=== PATIENT | female | born 1960 | race Caucasian/White ===

== ENCOUNTER 2020-02-17 12:40 | Inpatient (IN) | payer BC ==
[2020-02-17] MEDS ORDERED: SODIUM CHLORIDE 1,000 ML IV STA (12:55)
[2020-02-17 13:28] LABS: BASO % 0.4 % (0-2.0); EOS % 0.4 % (0-4.5); HEMATOCRIT 44.9 % (32.4-45.2); MCH 29.8 pg (25.7-33.7); MCHC 33.5 g/dl (32.0-36.0); MEAN PLT VOLUME 9.1 fl (7.5-11.1); MONO % 9.7 % (3.8-10.2); NEUT % 69.5 % (42.8-82.8); PLATELET COUNT 318 K/MM3 (134-434); RBC 5.04 M/mm3 (3.60-5.2); RDW 13.8 % (11.6-15.6); WHITE BLOOD COUNT 13.8 K/mm3 (4.0-10.0)
[2020-02-17 13:33] LABS: INR 1.04 (0.83-1.09); PROTHROMBIN TIME (PATIENT) 12.3 SEC (9.7-13.0)
[2020-02-17 13:37] LABS: ACTIVATED PTT 31.1 SECONDS (25.2-36.5)
--- NOTE | 2020-02-17 13:48 | PDOC ---
History of Present Illness - General Chief Complaint: Shortness of Breath Stated Complaint: CHEST PAIN Time Seen by Provider: 02/17/20 12:52 History Source: Patient Exam Limitations: No Limitations - History of Present Illness Initial Comments: Ernestina Ma is a 59 Y F with a PMH of HTN, seasonal allergies, and b12 deficiency, presents with 3 weeks of worsening SOB. She reports that for 3 weeks she has had difficulty breathing/SOB at rest, but this weekend it became worse. She also has sob, when she wakes up. SOB was sudden onset, no associated chest pain, cough, fever, chills, worsen with talking, not relieved with inhaler(flovent). She reports that recently she had SOB and a cough and neck/jaww pain with exertion. Today, she went to see her PCP, Dr. Hodges, for SOB, EKG done at office was abnormal and her HR was elevated, she was advised to come to ER. In ER she is resting comfortably, she reports no active SOB, chest pain, chest tightness, abdominal/back pain, cough, fever, chills, nausea, vomiting. She smoked for many years on and off, stopped 10 years ago, about 1/2ppd. Social alcohol and no illicit drugs. LMP 2015, no post abnormal bleeding. 02/17/20 13:49 02/17/20 14:06 02/17/20 14:11 02/17/20 14:33 Is this a multiple visit Asthma Patient?: No Past History - Medical History Allergies/Adverse Reactions: Allergies Allergy/AdvReac Type Severity Reaction Status Date / Time No Known Drug Allergies Allergy Verified 02/17/20 12:49 Home Medications: Ambulatory Orders Chlorthalidone [Hygroton -] 25 mg PO DAILY 02/17/20 Levocetirizine Dihydrochloride [Xyzal] 5 mg PO DAILY 02/17/20 COPD: No Disorders: Yes (H/O KIDNEY STONES) - Surgical History Abdominal Surgery: Yes (UMBILICAL HERNIA/INCISIONAL HERNIA REPAIR) Cholecystectomy: Yes - Reproductive History Is Patient Now?: No - Psycho-Social/Smoking History Smoking History: Former smoker Have you smoked in the past 12 months: No Information on smoking cessation initiated: No - Substance Abuse Hx (Audit-C & DAST Scrn) How often the patient has a drink containing alcohol: Never Score: In Men: 4 or > Positive; In Women: 3 or > Positive: 0 Screen Result (Pos requires Nsg. Audit-10AR): Negative In the last yr the pt used illegal drug/Rx for NonMed reason: No Score: Yes response is considered Positive: 0 Screen Result (Positive result requires Nsg. DAST-10): Negative Review of Systems - Review of Systems Able to Perform ROS?: Yes Is the patient limited Setswana proficient: No Constitutional: No: Chills, Fever, Weakness HEENTM: No: Blurred Vision, Nose Congestion, Throat Pain, Throat Swelling Respiratory: Yes: Shortness of Breath, SOB with Exertion, SOB at Rest. No: Co ugh, Orthopnea, Wheezing, Productive cough Cardiac (ROS): No: Chest Pain, Edema, Irregular Heart Rate, Lightheadedness, Palpitations, Chest Tightness ABD/GI: No: Constipated, Diarrhea, Difficulty Swallowing, Nausea, Vomiting, Indigestion : No: Burning, Dysuria, Frequency, Pain, Urgency Musculoskeletal: No: Back Pain, Muscle Weakness Integumentary: No: Change in Color Neurological: No: Headache, Numbness, Paresthesia, Weakness *Physical Exam - Vital Signs Last Vital Signs Temp Pulse Resp BP Pulse Ox 97.9 F 118 H 20 126/90 95 02/17/20 12:50 02/17/20 13:27 02/17/20 13:27 02/17/20 13:27 02/17/20 13:27 - Physical Exam General Appearance: Yes: Obese. No: Apparent Distress HEENT: positive: EOMI, BAO. negative: Nasal Congestion, Rhinorrhea Neck: positive: Supple. negative: Tender, Rigid, Carotid bruit, Lymphadenopathy (R), Lymphadenopathy (L) Respiratory/Chest: positive: Lungs Clear, Normal Breath Sounds. negative: Chest Tender, Respiratory Distress, Rales, Rhonchi, Wheezing Cardiovascular: positive: Regular Rhythm, S1, S2, Tachycardia. negative: Edema, JVD, Murmur Vascular Pulses: Carotid (R): 2+, Carotid (L): 2+, Dorsalis-Pedis (R): 2+, Doralis-Pedis (L): 2+ Gastrointestinal/Abdominal: positive: Normal Bowel Sounds, Soft. negative: Tender, Tenderness, Hernia, Mass Musculoskeletal: positive: Normal Inspection. negative: CVA Tenderness Extremity: positive: Normal Inspection. negative: Pedal Edema, Swelling, Calf Tenderness Integumentary: positive: Normal Color, Warm, Moist Neurologic: positive: lockstitch lining setter II-XII NML intact, Fully Oriented, Motor Strength 11/01 ED Treatment Course - LABORATORY CBC & Chemistry Diagram: 02/20/20 05:20 02/19/20 05:30 - ADDITIONAL ORDERS Additional order review: Laboratory Results 02/17/20 02/17/20 13:00 13:00 PT with INR 12.30 INR 1.04 PTT (Actin FS) 31.1 D-Dimer 7970 H 02/17/20 13:00 RBC 5.04 MCV 89.0 MCHC 33.5 RDW 13.8 MPV 9.1 Neutrophils % 69.5 D Lymphocytes % 20.0 D Monocytes % 9.7 Eosinophils % 0.4 D Basophils % 0.4 Medical Decision Making - Medical Decision Making 59 Y F with a PMH of HTN presents with 3 weeks of worsening SOB. #PE vs ACS vs Covid vs anemia vs endocrine - V/S : BP initially 161/90, repeat 20 min later 126/90, P 124, Spo2 97, RR 20 - EKG: - Chest CTA - CXR: - POCUS cardiac: - Pocus Lung: - Cardiac profile - CBC, CMP, Crp, ferritin, LDH, Mg, BNP - TSH, FT4 - NS 1000mls 02/17/20 13:57 Focused cardiac ultrasound - overall preserved contractility. very mild rv dilation close to 1:1 ration, no hypocontractilty no pericardial effusion. difficult views due to body habitus. ivc not visible. impression: overall preserved contractility, focused lung ultrasound no b lines, a line predominant no plueral effusion. bases no b lines. impression: normal lung ultrasound. 02/17/20 14:29 - D dimer: 7970 - BNP 2796 - TSH 0.14 - CRP 3.3, LD 253 Discharge - Discharge Information Problems reviewed: Yes Clinical Impression/Diagnosis: Pulmonary embolism - Follow up/Referral - Patient Discharge Instructions - Post Discharge Activity
[2020-02-17 14:06] LABS: N-TERMINAL BNP 2796.1 pg/ml (5-125)
[2020-02-17 14:08] LABS: ALBUMIN 3.9 g/dl (3.4-5.0); BILIRUBIN,TOTAL 0.8 mg/dL (0.2-1); BLOOD UREA NITROGEN 18.1 mg/dL (7-18); CREATININE 0.9 mg/dL (0.55-1.3); MAGNESIUM 2.2 mg/dL (1.8-2.4); POTASSIUM 3.3 mmol/L (3.5-5.1)
--- NOTE | 2020-02-17 14:26 | PDOC ---
Documentation entered by Maryellen Cornelius SCRIBE, acting as scribe for Arminda Alegre MD. Arminda Alegre MD: This documentation has been prepared by the valarieibeAdryan Lincy, SCRIBE, under my direction and personally reviewed by me in its entirety. I confirm that the documentation accurately reflects all work, treatment, procedures, and medical decision making performed by me. Attending Attestation - Resident Resident Name: [email or web address] - ED Attending Attestation I have performed the following: I have examined & evaluated the patient, The case was reviewed & discussed with the resident, I agree w/resident's findings & plan, Exceptions are as noted - HPI HPI: 02/17/20 14:07 The patient is a 59-year-old female with a past medical history significant for B12, htn, obesity, recent flu shot 3 weeks ago. deficiency who presents to the emergency department with worsening dyspnea on exertion. The patient reports a 1-month history of dyspnea on exertion that worsened in the past 1 week. The patient reports increasing shortness of breath with ambulation. The patient reports associated symptoms of jaw pain with exertion, associated with dyspnea on exertion. Denies orthopnea. Denies leg swelling. Denies a history of DVT or PE. Denies past MIs. Denies recent viral URI or COVID symptoms. The patient was seen at PCPs officer earlier today, who sent the patient to the ER for furthur evaluation. 02/17/20 14:14 - Physicial Exam PE: 02/17/20 14:15 awake alert lung clear bilat heart reg tachycardia. no mrg abd soft nt nd ext wwp. no edema. no calf tenderness. 2 + dp pt pulses. nuero alert oriented x 3. skin warm and dry no rash. - Medical Decision Making 02/17/20 14:21 59 yo F h/o htn obesity here with c/o exertional sob. intermittent jaw pain. tachycardic on presentation to ed, did use flovent prior to arrival. differential anemia, electrolyte abnoramlity thyroid abnoramlity, mi, pe, myocarditis, . plan labs ekg trop cxr tsh, ua focused ED us echo performed. overall preserved contractility. very mild rv dilation close to 1:1 ration, no hypocontractilty , noted tricuspid regurg. no pericardial effusion. difficult views due to body habitus. ivc not visible. impression: overall preserved contractility, Rv dilation close to 1:1, mild tricuspid regurg. focused lung ultrasound no b lines, a line predominant no plueral effusion. bases no b lines. impression: normal lung ultrasound. plan cta lungs r/o PE. d dimer elevated 7000. 02/17/20 15:15 02/17/20 15:15 pt cta with visible right main pulmonary branch with PE. will start on heparin, heparin drip, will consult ICU due to early RV strain rv dilation, large clot burden 02/17/20 15:26 Heart Score/ECG Review #1 General ECG Interpretation: Sinus Rhythm (sinus tachycardia 120 bpm, no st elevation or depression.) Compared to previous ECG there are: Other Discharge - Discharge Information Problems reviewed: Yes Clinical Impression/Diagnosis: Pulmonary embolism - Admission Yes - Follow up/Referral - Patient Discharge Instructions - Post Discharge Activity
[2020-02-17] MEDS ORDERED: HEPARIN NA (PORCINE) 5,000 UNITS/ML 1ML VIAL IVPUSH PRN (15:13)
[2020-02-17] MEDS ORDERED: HEPARIN INFUSION - 25,000 UNITS/500 ML INFUS.BAG IVPB ONE (15:28)
[2020-02-17] MEDS ORDERED: HEPARIN NA (PORCINE) 5,000 UNITS/ML 1ML VIAL ONE (15:28)
[2020-02-17] MEDS: HEPARIN INFUSION - 25,000 UNITS/500 ML INFUS.BAG IVPB SCH (15:36)
--- NOTE | 2020-02-17 17:33 | CONSULT ---
Consultation: REQUESTING PROVIDER: CONSULT REQUEST: We have been asked to medically evaluate this patient for ICU HISTORY OF PRESENT ILLNESS: 59yo F with a PMH of HTN, obesity, B12 deficiency, seasonal allergies, arthritis, who presented to ED with worsening shortness of breath. She reports a 3 week history of dyspnea on exertion that worsened in the past 1 week. She now is short of breath even with regular activities of daily living, including talking. She also reports right foot and calf pain within the past 1 week, exacerbated by bearing weight on heel. 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 She is post-menopausal (2014), has had one miscarriage and does not take hormone replacement therapy. She denies recent travel, past MIs or any history of DVT or PE. Denies recent viral URI or COVID symptoms. Of note, last week her doctor found an 8 mm breast mass on mammogram and ultrasound that is being further evaluated. The patient was seen at PCPs officer earlier today, who sent the patient to the ER for furthur evaluation. - CTA with visible right main pulmonary branch with PE, started on heparin drip PSH: cholecystectomy, kidney stones, D& C REVIEW OF SYSTEMS: CONSTITUTIONAL: Absent: fever, chills, diaphoresis, generalized weakness, malaise, loss of appetite, weight change HEENT: Absent: rhinorrhea, nasal congestion, throat pain, throat swelling, difficulty swallowing, mouth swelling, ear pain, eye pain, visual changes CARDIOVASCULAR: Absent: chest pain, syncope, palpitations, irregular heart rate, lightheadedness, peripheral edema RESPIRATORY: Present: cough, dyspnea with exertion, orthopnea, absent: wheezing, stridor, hemoptysis GASTROINTESTINAL: Absent: abdominal pain, abdominal distension, nausea, vomiting, diarrhea, constipation, melena, hematochezia GENITOURINARY: Absent: dysuria, frequency, urgency, hesitancy, hematuria, flank pain, genital pain MUSCULOSKELETAL: Present: arthralgia Absent: myalgia, joint swelling, back pain, neck pain SKIN: Absent: rash, itching, pallor HEMATOLOGIC/IMMUNOLOGIC: Absent: easy bleeding, easy bruising, lymphadenopathy, frequent infections NEUROLOGIC: Absent: headache, focal weakness or paresthesias, dizziness, unsteady gait, seizure, mental status changes, bladder or bowel incontinence PHYSICAL EXAMINATION Vital Signs - 24 hr 02/17/20 02/17/20 02/17/20 12:50 13:00 13:07 Temperature 97.9 F Pulse Rate 129 H 120 H Pulse Rate [ Apical] Respiratory 24 H Rate Blood Pressure 161/101 H Blood Pressure [Right Arm] O2 Sat by Pulse 97 97 97 Oximetry (%) 02/17/20 02/17/20 02/17/20 13:13 13:27 15:50 Temperature Pulse Rate 118 H Pulse Rate [ 118 H Apical] Respiratory 20 Rate Blood Pressure Blood Pressure 126/90 [Right Arm] O2 Sat by Pulse 97 95 96 Oximetry (%) 02/17/20 02/17/20 16:17 17:24 Temperature 98.5 F Pulse Rate 110 H Pulse Rate [ 115 H Apical] Respiratory 24 H 20 Rate Blood Pressure 136/92 Blood Pressure 117/89 [Right Arm] O2 Sat by Pulse 100 95 Oximetry (%) GENERAL: Awake, alert, and fully oriented, in no acute distress. HEAD: Normal with no signs of trauma. EYES: Pupils equal, round and reactive to light, extraocular movements intact EARS, NOSE, THROAT: oropharynx clear without exudates. Moist mucous membranes. LUNGS: Breath sounds equal, clear to auscultation bilaterally. No wheezes, and no crackles. No accessory muscle use. HEART: Regular rate and rhythm, normal S1 and S2 without murmur ABDOMEN: Soft, nontender, not distended, normoactive bowel sounds, no guarding, no rebound MUSCULOSKELETAL:. No CVA tenderness. UPPER EXTREMITIES: 2+ pulses, warm, well-perfused. No cyanosis. No clubbing. Cap refill <2 seconds. No peripheral edema. LOWER EXTREMITIES: 2+ pulses, warm, well-perfused. No calf tenderness. No peripheral edema. NEUROLOGICAL: Cranial nerves II-XII intact. Normal speech. SKIN: Warm, dry, normal turgor, no rashes or lesions noted. Laboratory Last Values WBC 13.8 K/mm3 (4.0-10.0) H 02/17/20 13:00 RBC 5.04 M/mm3 (3.60-5.2) 02/17/20 13:00 Hgb 15.0 GM/dL (10.7-15.3) 02/17/20 13:00 Hct 44.9 % (32.4-45.2) 02/17/20 13:00 MCV 89.0 fl (80-96) 02/17/20 13:00 MCH 29.8 pg (25.7-33.7) 02/17/20 13:00 MCHC 33.5 g/dl (32.0-36.0) 02/17/20 13:00 RDW 13.8 % (11.6-15.6) 02/17/20 13:00 Plt Count 318 K/MM3 (134-434) 02/17/20 13:00 MPV 9.1 fl (7.5-11.1) 02/17/20 13:00 Absolute Neuts (auto) 9.6 K/mm3 (1.5-8.0) H 02/17/20 13:00 Neutrophils % 69.5 % (42.8-82.8) D 02/17/20 13:00 Lymphocytes % 20.0 % (8-40) D 02/17/20 13:00 Monocytes % 9.7 % (3.8-10.2) 02/17/20 13:00 Eosinophils % 0.4 % (0-4.5) D 02/17/20 13:00 Basophils % 0.4 % (0-2.0) 02/17/20 13:00 Nucleated RBC % 0 % (0-0) 02/17/20 13:00 PT with INR 12.30 SEC (9.7-13.0) 02/17/20 13:00 INR 1.04 (0.83-1.09) 02/17/20 13:00 PTT (Actin FS) 31.1 SECONDS (25.2-36.5) 02/17/20 13:00 D-Dimer 7970 ng/ml (0-500) H 02/17/20 13:00 Sodium 143 mmol/L (136-145) 02/17/20 13:00 Potassium 3.3 mmol/L (3.5-5.1) L 02/17/20 13:00 Chloride 106 mmol/L (98-107) 02/17/20 13:00 Carbon Dioxide 27 mmol/L (21-32) 02/17/20 13:00 Anion Gap 10 MMOL/L (8-16) 02/17/20 13:00 BUN 18.1 mg/dL (7-18) H 02/17/20 13:00 Creatinine 0.9 mg/dL (0.55-1.3) 02/17/20 13:00 Est GFR (CKD-EPI)AfAm 81.11 02/17/20 13:00 Est GFR (CKD-EPI)NonAf 69.99 02/17/20 13:00 Random Glucose 78 mg/dL (74-106) 02/17/20 13:00 Calcium 10.0 mg/dL (8.5-10.1) 02/17/20 13:00 Magnesium 2.2 mg/dL (1.8-2.4) 02/17/20 13:00 Ferritin 33.1 ng/ml (8-388) 02/17/20 13:00 Total Bilirubin 0.8 mg/dL (0.2-1) 02/17/20 13:00 AST 25 U/L (15-37) 02/17/20 13:00 ALT 26 U/L (13-61) 02/17/20 13:00 Alkaline Phosphatase 115 U/L (45-117) 02/17/20 13:00 LD Total 253 U/L (84-246) H 02/17/20 13:00 Creatine Kinase 68 U/L (26-192) 02/17/20 13:00 Troponin I 0.81 ng/ml (0.00-0.05) H* 02/17/20 13:00 C-Reactive Protein 3.3 MG/DL (0.00-0.3) H 02/17/20 13:00 B-Natriuretic Peptide 2796.1 pg/ml (5-125) H 02/17/20 13:00 Total Protein 8.0 g/dl (6.4-8.2) 02/17/20 13:00 Albumin 3.9 g/dl (3.4-5.0) 02/17/20 13:00 TSH 0.14 uIU/ml (0.358-3.74) L 02/17/20 13:00 Free T4 1.07 ng/dl (0.76-1.46) 02/17/20 13:00 Active Medications Generic Name Dose Route Start Last Admin Trade Name Freq PRN Reason Stop Dose Admin Chlorhexidine Gluconate 1 applic 02/17/20 22:00 Hibiclens For Decolonization - TP HS MEG Heparin Sodium (Porcine) 1,000 unit 02/17/20 15:13 Heparin - IVPUSH PRN PRN Heparin Heparin Sodium (Porcine) 5,000 unit 02/17/20 15:13 02/17/20 15:36 Heparin - IVPUSH 5,000 unit PRN PRN Administration Heparin Heparin Sodium/Dextrose 25,000 units in 500 mls @ 20 mls/hr 02/17/20 15:15 02/17/20 15:36 Heparin Infusion - IVPB 1,000 units/hr TITR MEG 20 mls/hr Administration Protocol 1,000 UNITS/HR Mupirocin 1 applic 02/17/20 22:00 Bactroban Ointment (For Decolonization) - NS 02/22/20 21:59 BID MEG ASSESSMENT/PLAN: 59 yo F PMH HTN, B12 deficiency presents to the ED for worsening SOB x 3 weeks. Pt admitted to ICU for PE with R heart strain. Neuro: AOx3 , no acute events Cardiac: HTN, tropinemia, R heart strain - EKG reviewed -cont tele monitoring - Trop 0.81, BNP 2,796.1 -pending Echocardiogram, duplex b/l - will hold Chlorthalidone 25 mg in setting of acute PE, will re- eval tomorrow, monitor for any signs of acute hemodynamic instability - will get lipid panel Pulm: PE - CTA reviewed, see above - on 2L NC, titrate as tolerated . maintain SpO2> 92% - DDimer 7970 - cont Hep drip - IR (Dr. Uribe) will reevaluate tomorrow whether she needs thrombolysis ID: - pending Covid - afebrile, minor leukocytosis - monitor off Abx Hem/onc: - Hem/onc, Dr. Chua, consulted for breast mass seen on U/S 8/ Endo: - TSH pending, A1C pending DVT ppx: Heparin drip FEN: Fluids: Not on standing fluids Elec: Monitor electrolytes Nutr: NPO DISPO: cont ICU level care. thank you for this consulting opportunity. ATTENDING PHYSICIAN STATEMENT I saw and evaluated the patient. I reviewed the resident's note and discussed the case with the resident. I agree with the resident's findings and plan as documented. SUBJECTIVE: OBJECTIVE: ASSESSMENT AND PLAN:
[2020-02-17] MEDS: MUPIROCIN 2% TOPICAL OINTMENT FOR DECOLONIZATION NS SCH (21:31)
[2020-02-17] MEDS ORDERED: CHLORHEXIDINE GLUCONATE 4% CLEANSER FOR DECOLONIZATION TP SCH (22:00)
[2020-02-17] MEDS ORDERED: MELATONIN 5 MG TABLETS PO PRN (23:31)
--- NOTE | 2020-02-18 06:17 | PN ---
Progress Note, Physician - Current Medication List Current Medications: Active Medications Chlorhexidine Gluconate (Hibiclens For Decolonization -) 1 applic TP HS MEG Last Admin: 02/17/20 21:31 Dose: 1 applic Documented by: Heparin Sodium (Porcine) (Heparin -) 1,000 unit IVPUSH PRN PRN PRN Reason: Heparin Heparin Sodium (Porcine) (Heparin -) 5,000 unit IVPUSH PRN PRN PRN Reason: Heparin Last Admin: 02/17/20 15:36 Dose: 5,000 unit Documented by: Heparin Sodium/Dextrose (Heparin Infusion -) 25,000 units in 500 mls @ 20 mls/hr IVPB TITR MEG; Protocol Last Admin: 02/17/20 15:36 Dose: 1,000 units/hr, 20 mls/hr Documented by: Melatonin (Melatonin) 5 mg PO HS PRN PRN Reason: INSOMNIA Last Admin: 02/17/20 23:51 Dose: 5 mg Documented by: Mupirocin (Bactroban Ointment (For Decolonization) -) 1 applic NS BID MEG Stop: 02/22/20 21:59 Last Admin: 02/17/20 21:31 Dose: 1 applic Documented by: - Objective Vital Signs: Vital Signs Temperature 98.6 F 02/18/20 02:00 Pulse Rate 85 02/18/20 02:00 Respiratory Rate 18 02/18/20 02:00 Blood Pressure 144/81 02/18/20 02:00 O2 Sat by Pulse Oximetry (%) 96 02/18/20 02:00 Labs: CBC, BMP 02/17/20 13:00 02/17/20 13:00 INR, PTT INR 1.04 (0.83-1.09) 02/17/20 13:00
--- NOTE | 2020-02-18 06:20 | CON.CARD ---
Consult Consult Specialty:: Cardiology Referred by:: Dr. Cantrell Reason for Consultation:: Pulmonary emboli - History of Present Illness Chief Complaint: SOB x 3 weeks History of Present Illness: 59F presents with 3 weeks SOB, exertional fatigue, cough worse over last 3-4 days. In ER CTA showed bilateral pulmonary emboli, extensive. Thus far HD stable. Denies CP, on 2-3L NC O2 sat 97% FH: brother had DVT, circumstances unclear. Precip factors here may be recent sedentary work situation. 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: Alzheimer's, CVA, Dementia, Migraine, Multiple Sclerosis, Peripheral Neuropathy, Parkinson's, Seizure, Syncope, TIA, Vertigo, Other Cardio/Vascular: Yes: HTN Pulmonary: No: Asthma, Bronchitis, Cancer, COPD, O2 Dependent, Pneumonia, Previously Intubated, Pulmonary Embolus, Pulmonary Fibrosis, Sleep Apnea, Other Gastrointestinal: No: Ascites, Cancer, Constipation, Crohn's Disease, Diverticulitis, Diverticulosis, Esophageal Varices, Gastritis, GERD, GI Bleed, Hemorrhoids, Hiatal Hernia, Inflamatory Bowel Disease, Irritable Bowel Disease, Pancreatitis, Peptic Ulcer Disease, Ulcerative Colitis, Other Hepatobiliary: No: Cirrhosis, Cholelithiasis, Cholecystitis, Choledocholithiasis, Hepatitis A, Hepatitis B, Hepatitis C, Other Renal/: No: Renal Failure, Renal Inusuff, BPH, Cancer, Hematuria, Hemodialysis, Neurogenic Bladder, Renal Calculi, UTI, Other Reproductive: No: Ectopic , Endometriosis, Fibroids, PID, Polycystic Ovary Syndrome, Postmenopausal, Other ...LMP: 10/01/12 ...: No Heme/Onc: No: Anemia, B12 Deficiency, Bleeding Disorder, Cancer, Current Chemotherapy, Current Radiation Therapy, Hemochromatosis, Hypercoaguable State, Myeloproliferative Synd, Sickle Cell Disease, Sickle Cell Trait, Thrombocytopenia, Other Infectious Disease: No: AIDS, C-Diff, Herpes Zoster, HIV, MRSA, STD's, Tuberculosis, VREF, Other Psych: No: Addictions, Anxiety, Bipolar, Depression, Panic, Psychosis, Schizophrenia, Other Rheumatology: No: Fibromyalgia, Gout, Lupus, Rheumatoid Arthritis, Sarcoidosis, Vasculitis, Other - Past Surgical History Past Surgical History: No: None, AAA Repair, AICD, Amputation, Appendectomy, Arthrosocopy, AV Fistula/Graft, Bariatric Surgery, Breast Biopsy, Bypass, CABG, Carotid Endarterectomy, Cataract Removal, Cholecystectomy, Colectomy, Colonoscopy, Colostomy, Craniotomy, , Cystectomy, Hernia Repair, Hysterectomy, Ileal Conduit, Ileosotomy, Joint Replacement, Kidney Transplant, Laminectomy, Liver Transplant, Mastectomy, Nephrectomy, Oopherectomy, Orchiectomy, Permanent Pacemaker, Prostatectomy, Splenectomy, Stent, Thoracotomy, TURP, Tonsillectomy, Tubal Ligation, Upper Endoscopy, Valve Replacement, Vasectomy, Vein Stripping/Ligation - Alcohol/Substance Use Hx Alcohol Use: Yes (SOCIALLY) History of Substance Use: reports: Marijuana - Smoking History Smoking history: Former smoker Have you smoked in the past 12 months: No - Social History History of Recent Travel: No Home Medications - Allergies Allergies/Adverse Reactions: Allergies Allergy/AdvReac Type Severity Reaction Status Date / Time No Known Drug Allergies Allergy Verified 02/17/20 12:49 - Home Medications Home Medications: Ambulatory Orders Chlorthalidone [Hygroton -] 25 mg PO DAILY 02/17/20 Levocetirizine Dihydrochloride [Xyzal] 5 mg PO DAILY 02/17/20 Family Medical History Family History: Unremarkable Review of Systems Findings/Remarks: see HPI - Review of Systems Constitutional: reports: Weakness Eyes: reports: No Symptoms HENT: reports: No Symptoms Neck: reports: No Symptoms Cardiovascular: reports: Shortness of Breath Respiratory: reports: Exercise Intolerance Gastrointestinal: denies: No Symptoms, Abdominal Pain, Bloating, Constipation, Diarrhea, Dysphagia, Indigestion, Melena, Nausea, Rectal Bleeding, Vomiting, Vomiting Blood, Other Genitourinary: denies: No Symptoms, Burning, Discharge, Dysuria, Flank Pain, Frequency, Hematuria, Incontinence, Lesions, Menses, Pain, Testicular Mass, Testicular Pain, Testicular Swelling, Urgency, Vaginal Bleeding, Other Breasts: denies: No Symptoms Reported, See HPI, Breast Implants, Discharge from Nipple, Lumps, Pain, Skin Changes, Other Musculoskeletal: denies: No Symptoms, Back Pain, Crepitus, Decreased ROM, Extremity Pain, Joint Pain, Joint Swelling, Muscle Pain, Muscle Cramps, Muscle Weakness, Other Integumentary: denies: No Symptoms, Blister, Bruising, Change in Color, Eczema, Erythema, Incision, Lesions, Lump, Pallor, Pruritis, Rash, Wound, Other Neurological: denies: No Symptoms, Change in LOC, Change in Speech, Confusion, Dizziness, Headache, Incoordination, Numbness, Parasthesia, Pre-Existing Deficit, Seizure, Syncope, Tremors, Unsteady Gait, Weakness, Other Endocrine: denies: No Symptoms, Excessive Sweating, Flushing, Increased Hunger, Increased Thirst, Intolerance to Cold, Intolerance to Heat, Unexplained Weight Gain, Unexplained Weight Loss, Other Hematology/Lymphatic: denies: No Symptoms, Easily Bruised, Excessive Bleeding, Swollen Glands, Other Psychiatric: denies: No Symptoms, Altered Sleep Pattern, Anxiety, Depression, Hallucinations, Panic, Paranoia, Suicidal, Other - Risk Factors Known Risk Factors: Yes: Hypertension Vital Signs: Vital Signs Temperature 98.6 F 02/18/20 02:00 Pulse Rate 85 02/18/20 02:00 Respiratory Rate 18 02/18/20 02:00 Blood Pressure 144/81 02/18/20 02:00 O2 Sat by Pulse Oximetry (%) 96 02/18/20 02:00 Constitutional: Yes: No Distress, Calm Eyes: Yes: Conjunctiva Clear, EOM Intact HENT: Yes: Atraumatic, Normocephalic Neck: Yes: Supple, Trachea Midline Respiratory: Yes: CTA Bilaterally Gastrointestinal: Yes: Soft, Abdomen, Obese Cardiovascular: Yes: Regular Rate and Rhythm JVD: No Carotid Bruit: No PMI: Non-Displaced Heart Sounds: Yes: S1, S2 (rrr) Edema: No Peripheral Pulses WNL: Yes Neurological: Yes: Alert, Oriented ...Motor Strength: WNL Psychiatric: Yes: WNL - Other Data Labs, Other Data: CBC, BMP 02/17/20 13:00 02/17/20 13:00 INR, PTT INR 1.04 (0.83-1.09) 02/17/20 13:00 Troponin, BNP 02/17/20 02/17/20 13:00 20:00 Troponin I 0.81 H* 0.58 H B-Natriuretic Peptide 2796.1 H Troponin, BNP 02/17/20 02/17/20 13:00 20:00 Troponin I 0.81 H* 0.58 H B-Natriuretic Peptide 2796.1 H Laboratory Tests 02/17/20 02/17/20 02/17/20 13:00 13:00 13:00 WBC Hgb Plt Count PTT (Actin FS) D-Dimer 7970 H Sodium Potassium Creatinine Troponin I 0.81 H* B-Natriuretic Peptide 2796.1 H TSH COVID-19 ([facility]) Pending 02/17/20 02/18/20 02/18/20 20:00 06:20 06:20 WBC 10.7 H Hgb 13.5 Plt Count 265 PTT (Actin FS) D-Dimer Sodium 141 Potassium 3.4 L Creatinine 0.8 Troponin I 0.58 H B-Natriuretic Peptide TSH 0.15 L COVID-19 ([facility]) 02/18/20 06:20 WBC Hgb Plt Count PTT (Actin FS) 43.8 H D-Dimer Sodium Potassium Creatinine Troponin I B-Natriuretic Peptide TSH COVID-19 ([facility]) TELE: NSR, sinus tach and occasional VPC ECG: Sinus tach 128bpm, NSST Echo: Pending Stress Echo: Pending Imaging - Results Chest X-ray: Report Reviewed Cat Scan: Report Reviewed EKG: Image Reviewed Assessment/Plan IMP: Bilateral pulmonary emboli Chronic HTN Sinus tach VPCs REC: 1. B/l PEs: -Thus far, hemodynamically stable -Echo to assess RV, RVSP -Continue ICU monitoring on tele -Would consider switching AC to Lovenox 1mg/kg SQ BID - defer to critical care team -Elevated TnI and BNP secondary to b/l PEs possible RV strain. -unclear precipitant. Would obtain Heme evaluation. 2. Chronic HTN: -stable 3. Sinus tach: -secondary to pulmonary emboli 4. VPCS: single, rare -Echo -Keep K+ and Mg2+ normalized -cont tele
[2020-02-18 07:32] LABS: BASO % 0.5 % (0-2.0); EOS % 0.9 % (0-4.5); HEMATOCRIT 40.2 % (32.4-45.2); HEMOGLOBIN 13.5 GM/dL (10.7-15.3); LYMPH % 31.8 % (8-40); MCH 29.9 pg (25.7-33.7); MCHC 33.6 g/dl (32.0-36.0); MEAN CELL VOLUME 89.2 fl (80-96); MEAN PLT VOLUME 9.1 fl (7.5-11.1); NEUT % 58.8 % (42.8-82.8); PLATELET COUNT 265 K/MM3 (134-434); RBC 4.51 M/mm3 (3.60-5.2); RDW 14.1 % (11.6-15.6); WHITE BLOOD COUNT 10.7 K/mm3 (4.0-10.0)
--- NOTE | 2020-02-18 07:54 | PN ---
Physical Exam: SUBJECTIVE: Patient seen and examined at [facility]- no acute events overnight patient states she is feeling well and is very anxious to go home has no complaints - she denies any CP/SOB/N/V OBJECTIVE: Vital Signs Period Temp Pulse Resp BP Sys/Chinchilla Pulse Ox Last 24 Hr 97.9 F-98.7 F 70-129 16-25 117-168/70-101 95-100 GENERAL: The patient is awake, alert, and fully oriented, in no acute distress. EYES: PEERLA; EOMI; no scleral icterus . NECK: no JVD; no lymphadenopathy. LUNGS:CTA b/l no rales, rhonchi or wheezing HEART: Regular rate and rhythm, S1, S2 without murmur, rub or gallop. ABDOMEN: Soft, NT/ND +BS in all 4 quadrants EXTREMITIES: 2+ pulses, warm, well-perfused, no edema. PSYCH: Normal mood, normal affect. SKIN: Warm, dry, normal turgor, no rashes or lesions noted Laboratory Results - last 24 hr 02/17/20 02/17/20 02/17/20 13:00 13:00 13:00 WBC 13.8 H RBC 5.04 Hgb 15.0 Hct 44.9 MCV 89.0 MCH 29.8 MCHC 33.5 RDW 13.8 Plt Count 318 MPV 9.1 Absolute Neuts (auto) 9.6 H Neutrophils % 69.5 D Lymphocytes % 20.0 D Monocytes % 9.7 Eosinophils % 0.4 D Basophils % 0.4 Nucleated RBC % 0 PT with INR 12.30 INR 1.04 PTT (Actin FS) 31.1 D-Dimer Sodium 143 Potassium 3.3 L Chloride 106 Carbon Dioxide 27 Anion Gap 10 BUN 18.1 H Creatinine 0.9 Est GFR (CKD-EPI)AfAm 81.11 Est GFR (CKD-EPI)NonAf 69.99 Random Glucose 78 Calcium 10.0 Magnesium 2.2 Ferritin 33.1 Total Bilirubin 0.8 AST 25 ALT 26 Alkaline Phosphatase 115 LD Total 253 H Creatine Kinase 68 Troponin I 0.81 H* C-Reactive Protein 3.3 H B-Natriuretic Peptide 2796.1 H Total Protein 8.0 Albumin 3.9 Triglycerides 197 H Cholesterol 213 H Total LDL Cholesterol 144 H HDL Cholesterol 40 TSH 0.14 L Free T4 1.07 02/17/20 02/17/20 02/17/20 13:00 20:00 21:00 WBC RBC Hgb Hct MCV MCH MCHC RDW Plt Count MPV Absolute Neuts (auto) Neutrophils % Lymphocytes % Monocytes % Eosinophils % Basophils % Nucleated RBC % PT with INR INR PTT (Actin FS) 56.9 H D-Dimer 7970 H Sodium Potassium Chloride Carbon Dioxide Anion Gap BUN Creatinine Est GFR (CKD-EPI)AfAm Est GFR (CKD-EPI)NonAf Random Glucose Calcium Magnesium Ferritin Total Bilirubin AST ALT Alkaline Phosphatase LD Total Creatine Kinase Troponin I 0.58 H C-Reactive Protein B-Natriuretic Peptide Total Protein Albumin Triglycerides Cholesterol Total LDL Cholesterol HDL Cholesterol TSH Free T4 02/18/20 02/18/20 06:20 06:20 WBC 10.7 H RBC 4.51 Hgb 13.5 Hct 40.2 MCV 89.2 MCH 29.9 MCHC 33.6 RDW 14.1 Plt Count 265 MPV 9.1 Absolute Neuts (auto) 6.3 Neutrophils % 58.8 Lymphocytes % 31.8 D Monocytes % 8.0 Eosinophils % 0.9 D Basophils % 0.5 Nucleated RBC % 0 PT with INR INR PTT (Actin FS) 43.8 H D-Dimer Sodium Potassium Chloride Carbon Dioxide Anion Gap BUN Creatinine Est GFR (CKD-EPI)AfAm Est GFR (CKD-EPI)NonAf Random Glucose Calcium Magnesium Ferritin Total Bilirubin AST ALT Alkaline Phosphatase LD Total Creatine Kinase Troponin I C-Reactive Protein B-Natriuretic Peptide Total Protein Albumin Triglycerides Cholesterol Total LDL Cholesterol HDL Cholesterol TSH Free T4 Active Medications Generic Name Dose Route Start Last Admin Trade Name Freq PRN Reason Stop Dose Admin Chlorhexidine Gluconate 1 applic 02/17/20 22:00 02/17/20 21:31 Hibiclens For Decolonization - TP 1 applic HS MEG Administration Heparin Sodium (Porcine) 1,000 unit 02/17/20 15:13 Heparin - IVPUSH PRN PRN Heparin Heparin Sodium (Porcine) 5,000 unit 02/17/20 15:13 02/17/20 15:36 Heparin - IVPUSH 5,000 unit PRN PRN Administration Heparin Heparin Sodium/Dextrose 25,000 units in 500 mls @ 20 mls/hr 02/17/20 15:15 02/17/20 15:36 Heparin Infusion - IVPB 1,000 units/hr TITR MEG 20 mls/hr Administration Protocol 1,000 UNITS/HR Melatonin 5 mg 02/17/20 23:31 02/17/20 23:51 Melatonin PO 5 mg HS PRN Administration INSOMNIA Mupirocin 1 applic 02/17/20 22:00 02/17/20 21:31 Bactroban Ointment (For Decolonization) - NS 02/22/20 21:59 1 applic BID MEG Administration ASSESSMENT/PLAN: 59 yo F PMH HTN, B12 deficiency presents to the ED for worsening SOB x 3 weeks. Pt admitted to ICU for PE with R heart strain. Neuro: AOx3 , no acute events Cardiac: HTN, tropinemia, R heart strain - EKG reviewed -cont tele monitoring - Trop 0.81-->0.56, BNP 2,796.1 -pending Echocardiogram, - will hold Chlorthalidone 25 mg in setting of acute PE, will re- eval tomorrow, monitor for any signs of acute hemodynamic instability - will get lipid panel Pulm: PE - CTA reviewed, see above - on 2L NC, titrate as tolerated . maintain SpO2> 92% - DDimer 7970 - cont Hep drip; can transition to lovenox as per cardiology - IR (Dr. Uribe) will reevaluate today whether she needs thrombolysis based on final echo report ID: - pending Covid - afebrile, minor leukocytosis - monitor off Abx Hem/onc: - Hem/onc, Dr. Chua, consulted for breast mass seen on U/S 8/ Endo: - TSH pending, A1C pending DVT ppx: Heparin drip if no evidence of R heart strain on echo will switch to eliquis and transfer to tele Visit type - Emergency Visit Emergency Visit: Yes ED Registration Date: 02/17/20 Care time: The patient presented to the Emergency Department on the above date and was hospitalized for further evaluation of their emergent condition. - New Patient This patient is new to me today: No - Critical Care Critical Care patient: Yes Total Critical Care Time (in minutes): 35 Critical Care Statement: The care of this patient involved high complexity decision making to prevent further life threatening deterioration of the patient's condition and/or to evaluate & treat vital organ system(s) failure or risk of failure. ATTENDING PHYSICIAN STATEMENT I saw and evaluated the patient. I reviewed the resident's note and discussed the case with the resident. I agree with the resident's findings and plan as documented. SUBJECTIVE: OBJECTIVE: ASSESSMENT AND PLAN:
[2020-02-18 08:06] LABS: ALBUMIN 3.4 g/dl (3.4-5.0); BILIRUBIN,TOTAL 1.1 mg/dL (0.2-1); BLOOD UREA NITROGEN 13.6 mg/dL (7-18); CALCIUM 9.1 mg/dL (8.5-10.1); CREATININE 0.8 mg/dL (0.55-1.3); MAGNESIUM 2.2 mg/dL (1.8-2.4); POTASSIUM 3.4 mmol/L (3.5-5.1); TOT PROT 6.8 g/dl (6.4-8.2)
[2020-02-18] MEDS ORDERED: POTASSIUM CHLORIDE TABS 20 MEQ TABLET.ER (FP) PO ONE (08:45)
[2020-02-18] MEDS: HEPARIN NA (PORCINE) 5,000 UNITS/ML 1ML VIAL IVPUSH PRN ×2 (09:32→17:32)
[2020-02-18] MEDS: MUPIROCIN 2% TOPICAL OINTMENT FOR DECOLONIZATION NS SCH ×2 (09:38→21:44)
--- NOTE | 2020-02-18 10:15 | EKG ---
Test Reason : Blood Pressure : / mmHG Vent. Rate : 128 BPM Atrial Rate : 128 BPM P-R Int : 140 ms QRS Dur : 080 ms QT Int : 318 ms P-R-T Axes : 058 064 069 degrees QTc Int : 464 ms POOR DATA QUALITY, INTERPRETATION MAY BE ADVERSELY AFFECTED SINUS TACHYCARDIA NONSPECIFIC ST AND T WAVE ABNORMALITY ABNORMAL ECG Confirmed by JANAK MICHAEL MD ([id number]) on 02/18/2020 10:14:50 AM Referred By: Confirmed By:JANAK MICHAEL MD
--- NOTE | 2020-02-18 10:49 | EKG ---
Test Reason : Blood Pressure : / mmHG Vent. Rate : 108 BPM Atrial Rate : 108 BPM P-R Int : 148 ms QRS Dur : 082 ms QT Int : 372 ms P-R-T Axes : 040 050 066 degrees QTc Int : 498 ms POOR DATA QUALITY, INTERPRETATION MAY BE ADVERSELY AFFECTED SINUS TACHYCARDIA NONSPECIFIC T WAVE ABNORMALITY ABNORMAL ECG WHEN COMPARED WITH ECG OF 17-FEB-2020 12:46, NO SIGNIFICANT CHANGE WAS FOUND Confirmed by JANAK MICHAEL MD ([id number]) on 02/18/2020 10:48:38 AM Referred By: Confirmed By:JANAK MICHAEL MD
--- NOTE | 2020-02-18 12:46 | PN ---
Teaching Attending Note Name of Resident: Lidya eMlton ATTENDING PHYSICIAN STATEMENT I saw and evaluated the patient. I reviewed the resident's note and discussed the case with the resident. I agree with the resident's findings and plan as documented. SUBJECTIVE: Patient seen and examined in the ICU. 59 F, HTN, obesity, B12 deficiency, seasonal allergies, and arthritis. Admitted via the ER due worsening shortness of breath and dyspnea on exertion over the past 3 weeks. She also reports right foot and calf pain within the past 1 week. Reports a sedentary lifestyle due to COVID19. No personal or family history of VTE. CTA : extensive bilateral PE / no lung nodules or masses. Intake & Output 02/15/20 02/16/20 02/17/20 02/18/20 23:59 23:59 23:59 23:59 Intake Total 490 Balance 490 Weight 222 lb 221 lb Last Vital Signs Temp Pulse Resp BP Pulse Ox 98.2 F 88 18 159/70 99 02/18/20 06:00 02/18/20 08:10 02/18/20 09:00 02/18/20 08:10 02/18/20 09:00 Active Medications Chlorhexidine Gluconate (Hibiclens For Decolonization -) 1 applic TP HS MEG Last Admin: 02/17/20 21:31 Dose: 1 applic Documented by: Heparin Sodium (Porcine) (Heparin -) 1,000 unit IVPUSH PRN PRN PRN Reason: Heparin Last Admin: 02/18/20 09:32 Dose: 1,000 unit Documented by: Heparin Sodium (Porcine) (Heparin -) 5,000 unit IVPUSH PRN PRN PRN Reason: Heparin Last Admin: 02/17/20 15:36 Dose: 5,000 unit Documented by: Heparin Sodium/Dextrose (Heparin Infusion -) 25,000 units in 500 mls @ 20 mls/hr IVPB TITR MEG; Protocol Last Titration: 02/18/20 09:32 Dose: 1,100 units/hr, 22 mls/hr Documented by: Melatonin (Melatonin) 5 mg PO HS PRN PRN Reason: INSOMNIA Last Admin: 02/17/20 23:51 Dose: 5 mg Documented by: Mupirocin (Bactroban Ointment (For Decolonization) -) 1 applic NS BID MEG Stop: 02/22/20 21:59 Last Admin: 02/18/20 09:38 Dose: 1 applic Documented by: GENERAL: Awake, alert, and fully oriented, in no acute distress. HEAD: Normal with no signs of trauma. EYES: (-) Pallor / Icterus EARS, NOSE, THROAT: oropharynx clear without exudates. Moist mucous membranes. LUNGS: Breath sounds equal, clear to auscultation bilaterally. No wheezes, and no crackles. No accessory muscle use. HEART: Regular rate and rhythm, normal S1 and S2 without murmur ABDOMEN: Soft, nontender, not distended, normoactive bowel sounds, no guarding, no rebound MUSCULOSKELETAL:. No CVA tenderness. UPPER EXTREMITIES: 2+ pulses, warm, well-perfused. No cyanosis. No clubbing. Cap refill <2 seconds. No peripheral edema. LOWER EXTREMITIES: 2+ pulses, warm, well-perfused. No calf tenderness. No peripheral edema. NEUROLOGICAL: Non-focal SKIN: Warm, dry, normal turgor, no rashes or lesions noted. Laboratory Last Values WBC 13.8 K/mm3 (4.0-10.0) H 02/17/20 13:00 RBC 5.04 M/mm3 (3.60-5.2) 02/17/20 13:00 Hgb 15.0 GM/dL (10.7-15.3) 02/17/20 13:00 Hct 44.9 % (32.4-45.2) 02/17/20 13:00 MCV 89.0 fl (80-96) 02/17/20 13:00 MCH 29.8 pg (25.7-33.7) 02/17/20 13:00 MCHC 33.5 g/dl (32.0-36.0) 02/17/20 13:00 RDW 13.8 % (11.6-15.6) 02/17/20 13:00 Plt Count 318 K/MM3 (134-434) 02/17/20 13:00 MPV 9.1 fl (7.5-11.1) 02/17/20 13:00 Absolute Neuts (auto) 9.6 K/mm3 (1.5-8.0) H 02/17/20 13:00 Neutrophils % 69.5 % (42.8-82.8) D 02/17/20 13:00 Lymphocytes % 20.0 % (8-40) D 02/17/20 13:00 Monocytes % 9.7 % (3.8-10.2) 02/17/20 13:00 Eosinophils % 0.4 % (0-4.5) D 02/17/20 13:00 Basophils % 0.4 % (0-2.0) 02/17/20 13:00 Nucleated RBC % 0 % (0-0) 02/17/20 13:00 PT with INR 12.30 SEC (9.7-13.0) 02/17/20 13:00 INR 1.04 (0.83-1.09) 02/17/20 13:00 PTT (Actin FS) 31.1 SECONDS (25.2-36.5) 02/17/20 13:00 D-Dimer 7970 ng/ml (0-500) H 02/17/20 13:00 Sodium 143 mmol/L (136-145) 02/17/20 13:00 Potassium 3.3 mmol/L (3.5-5.1) L 02/17/20 13:00 Chloride 106 mmol/L (98-107) 02/17/20 13:00 Carbon Dioxide 27 mmol/L (21-32) 02/17/20 13:00 Anion Gap 10 MMOL/L (8-16) 02/17/20 13:00 BUN 18.1 mg/dL (7-18) H 02/17/20 13:00 Creatinine 0.9 mg/dL (0.55-1.3) 02/17/20 13:00 Est GFR (CKD-EPI)AfAm 81.11 02/17/20 13:00 Est GFR (CKD-EPI)NonAf 69.99 02/17/20 13:00 Random Glucose 78 mg/dL (74-106) 02/17/20 13:00 Calcium 10.0 mg/dL (8.5-10.1) 02/17/20 13:00 Magnesium 2.2 mg/dL (1.8-2.4) 02/17/20 13:00 Ferritin 33.1 ng/ml (8-388) 02/17/20 13:00 Total Bilirubin 0.8 mg/dL (0.2-1) 02/17/20 13:00 AST 25 U/L (15-37) 02/17/20 13:00 ALT 26 U/L (13-61) 02/17/20 13:00 Alkaline Phosphatase 115 U/L (45-117) 02/17/20 13:00 LD Total 253 U/L (84-246) H 02/17/20 13:00 Creatine Kinase 68 U/L (26-192) 02/17/20 13:00 Troponin I 0.81 ng/ml (0.00-0.05) H* 02/17/20 13:00 C-Reactive Protein 3.3 MG/DL (0.00-0.3) H 02/17/20 13:00 B-Natriuretic Peptide 2796.1 pg/ml (5-125) H 02/17/20 13:00 Total Protein 8.0 g/dl (6.4-8.2) 02/17/20 13:00 Albumin 3.9 g/dl (3.4-5.0) 02/17/20 13:00 TSH 0.14 uIU/ml (0.358-3.74) L 02/17/20 13:00 Free T4 1.07 ng/dl (0.76-1.46) 02/17/20 13:00 Active Medications Generic Name Dose Route Start Last Admin Trade Name Freq PRN Reason Stop Dose Admin Chlorhexidine Gluconate 1 applic 02/17/20 22:00 Hibiclens For Decolonization - TP HS MEG Heparin Sodium (Porcine) 1,000 unit 02/17/20 15:13 Heparin - IVPUSH PRN PRN Heparin Heparin Sodium (Porcine) 5,000 unit 02/17/20 15:13 02/17/20 15:36 Heparin - IVPUSH 5,000 unit PRN PRN Administration Heparin Heparin Sodium/Dextrose 25,000 units in 500 mls @ 20 mls/hr 02/17/20 15:15 02/17/20 15:36 Heparin Infusion - IVPB 1,000 units/hr TITR MEG 20 mls/hr Administration Protocol 1,000 UNITS/HR Mupirocin 1 applic 02/17/20 22:00 Bactroban Ointment (For Decolonization) - NS 02/22/20 21:59 BID MEG ASSESSMENT/PLAN: Extensive Bilateral PE : Etiology to be determined HTN Morbid Obesity R/O Right heart strain Breast nodule Official ECHO to be performed IV Heparin Supplemental O2 as needed Heme / Onc evaluation was called Patient advised about close follow up of her Right breast lesion as an outpatient. If no IR intervention, can start Eliquis and be monitored on Cardiac Telemetry Dr Cantrell
--- NOTE | 2020-02-18 13:13 | ECHO ---
Version: 1 Name: CORIE YANG Exam: Adult Echocardiogram Study Date: 02/18/2020, 11:36 AM Age: 59 Years MMode/2D Measurements & Calculations IVSd: 1.25 cm LVIDs: 2.8 cm LVIDd: 4.2 cm LVPWd: 1.01 cm LAV (MOD-bp): 64.0 ml ACS: 1.79 cm Ao root diam: 2.5 cm LVOT diam: 1.97 cm LA dimension: 3.3 cm Doppler Measurements & Calculations MV E max dre: 59.7 cm/sec Med E/e': 10.2 MV A max dre: 71.6 cm/sec Med Peak E' Dre: 5.8 cm/sec MV E/A: 0.83 Lat E/e': 6.3 Lat Peak E' Dre: 9.6 cm/sec MR max P.9 mmHg Ao max P.5 mmHg MOMO(I,D): 2.46 cm Ao mean P.8 mmHg LV V1 mean: 69.3 cm/sec Ao V2 max: 145.5 cm/sec LV V1 mean P.31 mmHg TR max dre: 308.6 cm/sec TR max P.2 mmHg Procedure The study was technically difficult with many images being suboptimal in quality. Left Ventricle Left ventricular systolic function is normal. Ejection Fraction = 55-60%. The transmitral spectral D oppler flow pattern is suggestive of impaired LV relaxation. Regional wall motion abnormalities cannot be e xcluded due to limited visualization. Right Ventricle The right ventricle is borderline dilated. The right ventricular systolic function is grossly normal . Atria The left atrium is borderline dilated. Interatrial septum not well seen. Mitral Valve There is mild mitral valve thickening. There is no mitral valve stenosis. There is mild mitral regur gitation. Tricuspid Valve The tricuspid valve is not well visualized, but is grossly normal. There is mild tricuspid regurgita tion. Right ventricular systolic pressure is elevated at 40-50mmHg. Aortic Valve The aortic valve opens well. No hemodynamically significant valvular aortic stenosis. No aortic regu rgitation is present. Pulmonic Valve The pulmonic valve is not well seen, but is grossly normal. There is no pulmonic valvular stenosis. Trace pulmonic valvular regurgitation. Great Vessels The aortic root is normal size. Pericardium/Pleura There is no pericardial effusion. Tech Comments TDS due to body habitus. Summary Statements The study was technically difficult with many images being suboptimal in quality. Left ventricular systolic function is normal. Ejection Fraction = 55-60%. The transmitral spectral Doppler flow pattern is suggestive of impaired LV relaxation. The right ventricle is borderline dilated. The right ventricular systolic function is grossly normal. The left atrium is borderline dilated. There is mild mitral regurgitation. There is mild tricuspid regurgitation. Right ventricular systolic pressure is elevated at 40-50mmHg. MD Bhatt *Terry 02/18/2020, 1:12 PM Ordering Physician: Dina Loera Referring Physician: DINA LOERA Performed By: Yvette Gross
--- NOTE | 2020-02-18 13:40 | PN ---
Teaching Attending Note ATTENDING PHYSICIAN STATEMENT I saw and evaluated the patient. I reviewed the resident's note and discussed the case with the resident. I agree with the resident's findings and plan as documented. SUBJECTIVE: OBJECTIVE: ASSESSMENT AND PLAN:
--- NOTE | 2020-02-18 13:43 | PN ---
Teaching Attending Note ATTENDING PHYSICIAN STATEMENT I saw and evaluated the patient. I reviewed the resident's note and discussed the case with the resident. I agree with the resident's findings and plan as documented. SUBJECTIVE: 59 year old female with known history of hypertension, morbid obesity, recently found breast nodule who was admitted to the ICU for bilateral pulmonary embolus. The cause is undetermined at this point and patient is scheduled to be evaluated by the well service pump equipment operator. Patient is feeling much better since she has been on antico agulation with heparin. Patient also found to have a right breast lesion as an out patient and plan is for her to undergo work up in the out patient setting. OBJECTIVE: Gen appears appropriate for stated age HEENT: EOMI neck; supple, no JVD elevation Chest: clear to auscultation CVS: RRR, no murmurs abd: soft, nontender, nondistended, +BS ext: no edema, feet are warm and dry multiple needle stitcher; no motor nor sensory deficit ASSESSMENT AND PLAN: 1. Bilateral PE - cont with anticoagulation with heparin for now with goal to transition to DOAC if no further intervention is going to be performed - cont close observation - cont continuous cardiac monitoring - will await further recommendations from well service pump equipment operator Dr Chua re: recommended work up - patient with right breast nodule, work up likely as OP with well service pump equipment operator/oncologist 2. Hypokalemia - replete and recheck in am 3. Hypertension - start beta judy 4. DVT - on heparin gtt (#1)
[2020-02-18] MEDS: HEPARIN INFUSION - 25,000 UNITS/500 ML INFUS.BAG IVPB SCH ×2 (15:26→17:47)
[2020-02-18] MEDS ORDERED: HEPARIN NA (PORCINE) 5,000 UNITS/ML 1ML VIAL IVPUSH PRN ×2 (17:47)
[2020-02-18] MEDS: CHLORHEXIDINE GLUCONATE 4% CLEANSER FOR DECOLONIZATION TP SCH (21:44)
[2020-02-19 07:01] LABS: HEMATOCRIT 39.1 % (32.4-45.2); HEMOGLOBIN 13.2 GM/dL (10.7-15.3); MCH 30.1 pg (25.7-33.7); MCHC 33.9 g/dl (32.0-36.0); MEAN PLT VOLUME 9.1 fl (7.5-11.1); PLATELET COUNT 271 K/MM3 (134-434); RBC 4.39 M/mm3 (3.60-5.2); RDW 13.9 % (11.6-15.6); WHITE BLOOD COUNT 9.9 K/mm3 (4.0-10.0)
[2020-02-19 07:23] LABS: ALBUMIN 3.3 g/dl (3.4-5.0); BILIRUBIN,TOTAL 0.8 mg/dL (0.2-1); CREATININE 0.8 mg/dL (0.55-1.3); MAGNESIUM 2.2 mg/dL (1.8-2.4); PHOSPHOROUS 4.1 mg/dL (2.5-4.9); POTASSIUM 3.2 mmol/L (3.5-5.1); TOT PROT 6.8 g/dl (6.4-8.2)
[2020-02-19] MEDS: MUPIROCIN 2% TOPICAL OINTMENT FOR DECOLONIZATION NS SCH ×2 (11:03→21:29)
--- NOTE | 2020-02-19 11:34 | PN ---
Progress Note (short form) - Note Progress Note: s: no cp sob palps dizzy Current Medications Generic Name Dose Route Start Last Admin Trade Name Freq PRN Reason Stop Dose Admin Chlorhexidine Gluconate 1 applic 02/18/20 22:00 02/18/20 21:44 Hibiclens For Decolonization - TP 1 applic HS MEG Administration Heparin Sodium (Porcine) 1,000 unit 02/18/20 17:47 Heparin - IVPUSH PRN PRN Heparin Heparin Sodium (Porcine) 5,000 unit 02/18/20 17:47 Heparin - IVPUSH PRN PRN Heparin Heparin Sodium/Dextrose 25,000 units in 500 mls @ 20 mls/hr 02/18/20 17:47 02/18/20 17:47 Heparin Infusion - IVPB 1,200 units/hr TITR MEG 24 mls/hr Administration Protocol 1,000 UNITS/HR Melatonin 5 mg 02/18/20 17:47 Melatonin PO HS PRN INSOMNIA Metoprolol Succinate 50 mg 02/18/20 14:15 02/19/20 10:52 Toprol Xl - PO Not Given DAILY MEG Mupirocin 1 applic 02/18/20 22:00 02/19/20 11:03 Bactroban Ointment (For Decolonization) - NS 02/22/20 21:59 1 applic BID MEG Administration Vital Signs Period Temp Pulse Resp BP Sys/Chinchilla Pulse Ox Last 24 Hr 97.9 F 74-90 13-18 110-150/68-86 95-99 Constitutional: Yes: No Distress, Calm Eyes: Yes: Conjunctiva Clear Neck: Yes: Supple, Trachea Midline Respiratory: Yes: CTA Bilaterally Gastrointestinal: Yes: Soft, Abdomen, Obese Cardiovascular: Yes: Regular Rate and Rhythm JVD: No Carotid Bruit: No PMI: Non-Displaced Heart Sounds: Yes: S1, S2 (rrr) Edema: No Peripheral Pulses WNL: Yes Neurological: Yes: Alert, Oriented Psychiatric: Yes: WNL CBC, BMP 02/19/20 05:30 02/19/20 05:30 TELE: sr ECG: Sinus tach 128bpm, NSST echo 01/2020: nl lv/rv, mild mr, mild tr, rvsp 40-50 Imaging - Results Chest X-ray: Report Reviewed Cat Scan: Report Reviewed EKG: Image Reviewed Assessment/Plan IMP: Bilateral pulmonary emboli Chronic HTN Sinus tach VPCs REC: 1. B/l PEs: -Thus far, hemodynamically stable -Echo shows unremarkable RV but rvsp is elevated likely due to PE -Continue ICU monitoring on tele -cont ac -Elevated TnI and BNP secondary to b/l PEs possible RV strain, not c/w acs -unclear precipitant. Would obtain Heme evaluation. 2. Chronic HTN: -stable 3. Sinus tach: -secondary to pulmonary emboli 4. VPCS: single, rare -Echo -Keep K+ and Mg2+ normalized -cont tele
--- NOTE | 2020-02-19 16:30 | CONSULT ---
Consult - text type - Consultation Consultation Note: 59yo F with a PMH of HTN, obesity, B12 deficiency, seasonal allergies, arthritis, who presented to ED with worsening shortness of breath. She reports a 3 week history of dyspnea on exertion that worsened in the past 1 week. She now is short of breath even with regular activities of daily living, including talking. She also reports right foot and calf pain within the past 1 week, exacerbated by bearing weight on heel. 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 She is post-menopausal (2014), has had one miscarriage and does not take hormone replacement therapy. She denies recent travel, past MIs or any history of DVT or PE. Denies recent viral URI or COVID symptoms. CTA : B/L PE PHYSICAL EXAMINATION AFVSS Obese Cor: RSR, No murmurs, No gallops Lungs: Clear to P&A Abd: Soft, Normal bowel sounds, No organomegaly Ext:No significant edema Breast exam --no discrete masses b/l Labs/Meds reviewed ASSESSMENT/PLAN: 59 yo F PMH HTN, B12 deficiency presents to the ED for worsening SOB x 3 weeks. CTA -- extensive b/l PE in all lobes b/l Venous duplex neg. PT/PTT-nl/Hgb 13/Cr and LFTs nl HAd been relatively sedentary during COVID . Brother has h/o DVT ? Unprovoked. Obesity and relative sedentarines are risk factors. Brother also with h/o DVT Discussed pros/cons of coumadin vs DOACs Given obesity , BMI 43, DOACs -- could monitor peak , trough levels of antifactor Xa and with subtherapeutic levels consider coumadin over DOAC, awaiting repeat echo to decide regarding IR thrombolysis Given family h/o, although hereditary thrombophilia will not effect decision on duration of a/c , would consider thrombophilia w/u outpatient Will need age appropriate cancer screening-- discussed with patient. Elizabeth inhalation therapy teacher eval. Needs w/u of abnormal mammogram ( 8mm rt. retroareolar mass)--needs breast surgery referral Eventually will need GI screening aswell Discussed wt. loss, increased physical activity would consider welcome hostess a/c at this time with periodic assessment of risks/benefits by hematology team
--- NOTE | 2020-02-19 21:06 | PN ---
Progress Note, Physician History of Present Illness: seen and examined at bedside. no complaints. BP controlled off meds. Denies nausea vomiting fever chills chest pain SOB or bleeding. - Current Medication List Current Medications: Active Medications Chlorhexidine Gluconate (Hibiclens For Decolonization -) 1 applic TP HS [facility] Last Admin: 02/18/20 21:44 Dose: 1 applic Documented by: Heparin Sodium (Porcine) (Heparin -) 1,000 unit IVPUSH PRN PRN PRN Reason: Heparin Heparin Sodium (Porcine) (Heparin -) 5,000 unit IVPUSH PRN PRN PRN Reason: Heparin Heparin Sodium/Dextrose (Heparin Infusion -) 25,000 units in 500 mls @ 20 mls/hr IVPB TITR [facility]; Protocol Last Admin: 02/18/20 17:47 Dose: 1,200 units/hr, 24 mls/hr Documented by: Melatonin (Melatonin) 5 mg PO HS PRN PRN Reason: INSOMNIA Metoprolol Succinate (Toprol Xl -) 50 mg PO DAILY [facility] Last Admin: 02/19/20 10:52 Dose: Not Given Documented by: Mupirocin (Bactroban Ointment (For Decolonization) -) 1 applic NS BID [facility] Stop: 02/22/20 21:59 Last Admin: 02/19/20 11:03 Dose: 1 applic Documented by: Potassium Chloride (K-Dur -) 40 meq PO BID [facility] Stop: 02/20/20 10:01 - Objective Vital Signs: Vital Signs Temperature 97.9 F 02/19/20 16:00 Pulse Rate 80 02/19/20 20:00 Respiratory Rate 14 02/19/20 20:00 Blood Pressure 119/58 L 02/19/20 20:00 O2 Sat by Pulse Oximetry (%) 99 02/19/20 20:00 Constitutional: Yes: No Distress, Calm, Obese Eyes: Yes: Conjunctiva Clear, EOM Intact HENT: Yes: Atraumatic, Normocephalic Neck: Yes: Supple Cardiovascular: Yes: Regular Rate and Rhythm Respiratory: Yes: WNL, Regular, CTA Bilaterally Gastrointestinal: Yes: Normal Bowel Sounds, Soft, Abdomen, Obese Extremities: Yes: WNL. No: Calf Tenderness Edema: No Neurological: Yes: WNL, Alert, Oriented ...Motor Strength: WNL Psychiatric: Yes: WNL, Alert, Oriented Labs: CBC, BMP 08/22/20 05:30 02/19/20 05:30 INR, PTT INR 1.04 (0.83-1.09) 02/17/20 13:00 - ....Imaging Cat Scan: Report Reviewed, Image Reviewed (CTA chest) Other: Report Reviewed (echo reviewed) Impression/Plan Impression/Plan: 59F with history of morbid obesity and HTN presents with SOB found to have extensive bilateral PEs. acute respiratory failure/dyspnea on exertion secondary to bilateral PEs. Extensive right main pulmonary artery clot burden repeat echo and if still shows strain will need thrombectomy continue heparin gtt O2 PRN monitor BP/hemodynamics for shock (obstructive) hematology consult (seen patient but note pending) Outpatient hypercoagulable workup HTN Hold chlorthalidone for now continue metoprolol ambulating hypokalemia replete and recheck Visit type - Emergency Visit Emergency Visit: Yes ED Registration Date: 02/17/20 Care time: The patient presented to the Emergency Department on the above date and was hospitalized for further evaluation of their emergent condition. - New Patient This patient is new to me today: Yes Date on this admission: 02/19/20 - Critical Care Critical Care patient: No
[2020-02-19] MEDS: HEPARIN INFUSION - 25,000 UNITS/500 ML INFUS.BAG IVPB SCH (21:24)
[2020-02-19] MEDS: POTASSIUM CHLORIDE TABS 20 MEQ TABLET.ER (FP) PO SCH (21:25)
[2020-02-19] MEDS: CHLORHEXIDINE GLUCONATE 4% CLEANSER FOR DECOLONIZATION TP SCH (21:26)
[2020-02-20 06:47] LABS: HEMATOCRIT 38.4 % (32.4-45.2); HEMOGLOBIN 12.8 GM/dL (10.7-15.3); MCH 29.8 pg (25.7-33.7); MCHC 33.2 g/dl (32.0-36.0); MEAN CELL VOLUME 89.6 fl (80-96); MEAN PLT VOLUME 9.2 fl (7.5-11.1); PLATELET COUNT 267 K/MM3 (134-434); RBC 4.29 M/mm3 (3.60-5.2); WHITE BLOOD COUNT 9.3 K/mm3 (4.0-10.0)
[2020-02-20] MEDS: POTASSIUM CHLORIDE TABS 20 MEQ TABLET.ER (FP) PO SCH (10:11)
[2020-02-20] MEDS: MUPIROCIN 2% TOPICAL OINTMENT FOR DECOLONIZATION NS SCH ×2 (10:11→21:00)
--- NOTE | 2020-02-20 11:05 | PN ---
Progress Note (short form) - Note Progress Note: s: no cp sob palps dizzy Current Medications Generic Name Dose Route Start Last Admin Trade Name Freq PRN Reason Stop Dose Admin Chlorhexidine Gluconate 1 applic 02/18/20 22:00 02/19/20 21:26 Hibiclens For Decolonization - TP 1 applic HS MEG Administration Heparin Sodium (Porcine) 1,000 unit 02/18/20 17:47 Heparin - IVPUSH PRN PRN Heparin Heparin Sodium (Porcine) 5,000 unit 02/18/20 17:47 Heparin - IVPUSH PRN PRN Heparin Heparin Sodium/Dextrose 25,000 units in 500 mls @ 20 mls/hr 02/18/20 17:47 02/19/20 21:24 Heparin Infusion - IVPB Not Given TITR MEG Protocol 1,000 UNITS/HR Melatonin 5 mg 02/18/20 17:47 Melatonin PO HS PRN INSOMNIA Metoprolol Succinate 50 mg 02/18/20 14:15 02/20/20 10:11 Toprol Xl - PO Not Given DAILY MEG Mupirocin 1 applic 02/18/20 22:00 02/20/20 10:11 Bactroban Ointment (For Decolonization) - NS 02/22/20 21:59 1 applic BID MEG Administration Vital Signs Period Temp Pulse Resp BP Sys/Chinchilla Pulse Ox Last 24 Hr 97.9 F-98.1 F 57-83 12-19 108-133/58-73 96-100 Constitutional: Yes: No Distress, Calm Eyes: Yes: Conjunctiva Clear Neck: Yes: Supple, Trachea Midline Respiratory: Yes: CTA Bilaterally Gastrointestinal: Yes: Soft, Abdomen, Obese Cardiovascular: Yes: Regular Rate and Rhythm JVD: No Carotid Bruit: No PMI: Non-Displaced Heart Sounds: Yes: S1, S2 (rrr) Edema: No Peripheral Pulses WNL: Yes Neurological: Yes: Alert, Oriented Psychiatric: Yes: WNL CBC, BMP 02/20/20 05:20 02/19/20 05:30 TELE: sr ECG: Sinus tach 128bpm, NSST echo 01/2020: nl lv/rv, mild mr, mild tr, rvsp 40-50 Imaging - Results Chest X-ray: Report Reviewed Cat Scan: Report Reviewed EKG: Image Reviewed Assessment/Plan IMP: Bilateral pulmonary emboli Chronic HTN Sinus tach VPCs REC: 1. B/l PEs: -Thus far, hemodynamically stable -Echo shows unremarkable RV but rvsp is elevated likely due to PE-->plan to repeat echo tomorrow to monitor rv strain to help guide decision for IR. -Continue ICU monitoring on tele -cont ac -Elevated TnI and BNP secondary to b/l PEs possible RV strain, not c/w acs -unclear precipitant. Would obtain Heme evaluation. 2. Chronic HTN: -stable 3. Sinus tach: -secondary to pulmonary emboli 4. VPCS: single, rare -Echo -Keep K+ and Mg2+ normalized -cont tele
[2020-02-20] MEDS: HEPARIN INFUSION - 25,000 UNITS/500 ML INFUS.BAG IVPB SCH ×2 (13:40→20:59)
--- NOTE | 2020-02-20 20:26 | PN ---
Progress Note, Physician History of Present Illness: seen and examined at bedside. no complaints. BP controlled on metoprolol. Denies nausea vomiting fever chills chest pain SOB or bleeding. Feels well overall. Ambulating. - Current Medication List Current Medications: Active Medications Chlorhexidine Gluconate (Hibiclens For Decolonization -) 1 applic TP HS [facility] Last Admin: 02/19/20 21:26 Dose: 1 applic Documented by: Heparin Sodium (Porcine) (Heparin -) 1,000 unit IVPUSH PRN PRN PRN Reason: Heparin Heparin Sodium (Porcine) (Heparin -) 5,000 unit IVPUSH PRN PRN PRN Reason: Heparin Heparin Sodium/Dextrose (Heparin Infusion -) 25,000 units in 500 mls @ 20 mls/hr IVPB TITR [facility]; Protocol Last Admin: 02/20/20 13:40 Dose: 1,200 units/hr, 24 mls/hr Documented by: Melatonin (Melatonin) 5 mg PO HS PRN PRN Reason: INSOMNIA Metoprolol Succinate (Toprol Xl -) 50 mg PO DAILY [facility] Last Admin: 02/20/20 10:11 Dose: Not Given Documented by: Mupirocin (Bactroban Ointment (For Decolonization) -) 1 applic NS BID [facility] Stop: 02/22/20 21:59 Last Admin: 02/20/20 10:11 Dose: 1 applic Documented by: - Objective Vital Signs: Vital Signs Temperature 98.3 F 02/20/20 12:00 Pulse Rate 65 02/20/20 16:00 Respiratory Rate 14 02/20/20 16:00 Blood Pressure 122/57 L 02/20/20 16:00 O2 Sat by Pulse Oximetry (%) 100 02/20/20 16:00 Constitutional: Yes: No Distress, Calm, Obese Eyes: Yes: Conjunctiva Clear, EOM Intact HENT: Yes: Atraumatic, Normocephalic Neck: Yes: Supple Cardiovascular: Yes: Regular Rate and Rhythm Respiratory: Yes: WNL, Regular, CTA Bilaterally Gastrointestinal: Yes: Normal Bowel Sounds, Soft, Abdomen, Obese Extremities: Yes: WNL. No: Calf Tenderness Edema: No Neurological: Yes: WNL, Alert, Oriented ...Motor Strength: WNL Psychiatric: Yes: WNL, Alert, Oriented Labs: CBC, BMP 02/20/20 05:20 02/19/20 05:30 INR, PTT INR 1.04 (0.83-1.09) 02/17/20 13:00 Impression/Plan Impression/Plan: 59F with history of morbid obesity and HTN presents with SOB found to have extensive bilateral PEs. acute respiratory failure/dyspnea on exertion secondary to bilateral PEs. Extensive right main pulmonary artery clot burden repeat echo and if still shows strain will need thrombectomy continue heparin gtt Trend PTT and keep therapeutic O2 PRN monitor BP/hemodynamics for shock (obstructive) hematology consult (seen patient but note pending) Outpatient hypercoagulable workup HTN Hold chlorthalidone for now continue metoprolol ambulating hypokalemia replete and recheck-Given 40meq po BID for 2 doses but chemistry not done today so will rec heck in AM Visit type - Emergency Visit Emergency Visit: Yes ED Registration Date: 02/17/20 Care time: The patient presented to the Emergency Department on the above date and was hospitalized for further evaluation of their emergent condition. - New Patient This patient is new to me today: No - Critical Care Critical Care patient: No
[2020-02-20] MEDS: MELATONIN 5 MG TABLETS PO PRN (21:42)
[2020-02-20] MEDS: CHLORHEXIDINE GLUCONATE 4% CLEANSER FOR DECOLONIZATION TP SCH (21:42)
[2020-02-21 07:20] LABS: HEMATOCRIT 38.2 % (32.4-45.2); HEMOGLOBIN 12.5 GM/dL (10.7-15.3); MCH 29.5 pg (25.7-33.7); MCHC 32.6 g/dl (32.0-36.0); MEAN CELL VOLUME 90.4 fl (80-96); MEAN PLT VOLUME 9.1 fl (7.5-11.1); PLATELET COUNT 266 K/MM3 (134-434); RBC 4.22 M/mm3 (3.60-5.2); RDW 13.6 % (11.6-15.6); WHITE BLOOD COUNT 8.6 K/mm3 (4.0-10.0)
[2020-02-21 07:41] LABS: BLOOD UREA NITROGEN 14.6 mg/dL (7-18); CALCIUM 8.9 mg/dL (8.5-10.1); CREATININE 0.8 mg/dL (0.55-1.3); MAGNESIUM 2.3 mg/dL (1.8-2.4)
[2020-02-21] MEDS: MUPIROCIN 2% TOPICAL OINTMENT FOR DECOLONIZATION NS SCH ×2 (09:15→21:35)
--- NOTE | 2020-02-21 11:07 | PN ---
Physical Exam: SUBJECTIVE: Patient seen and examined. she is sitting in chair, denies chest pain or shortness of breath. on 2 liters of nasal cannula. denies frequent travel, denies tobacco use. reports long periods of immobility during the pandemic. Her brother had a DVT of leg years ago. OBJECTIVE: Patient is a 59 year old female with a significant past medical history of HTN, morbid obesity, B12 deficiency, seasonal allergies, arthritis. She presented to the ED on 02/17/2020 for shortness of breath with exertion and was found to have bilateral PEs per CTA. She denies recent travel, past MIs or any history of DVT or PE. imaging: CTA 02/17/2020: extensive pulmonary emboli abdomen, right main pulmonary artery bifurcation with involvement of the right upper, middle and lower lobe pulmonary artery branches. Also extensive pulmonary emboli involving the left upper and left lower lobe pulmonary artery branches. covid status: negative as of 02/17/20 ------- Period Temp Pulse Resp BP Sys/Chinchilla Pulse Ox Last 24 Hr 98.1 F-98.8 F 64-83 14-20 120-127/57-77 99-100 GENERAL: The patient is awake, alert, and fully oriented, in no acute distress. HEAD: Normal with no signs of trauma. EYES: PERRL, extraocular movements intact, sclera anicteric, conjunctiva clear. No ptosis. ENT: Ears normal, nares patent, oropharynx clear without exudates, moist mucous membranes. NECK: Trachea midline, full range of motion, supple. LUNGS: Breath sounds equal, clear to auscultation bilaterally, no wheezes HEART: Regular rate and rhythm ABDOMEN: Soft, nontender, nondistended, normoactive bowel sounds EXTREMITIES: 2+ pulses, warm, well-perfused, no edema. NEUROLOGICAL: Normal speech, gait not observed. PSYCH: Normal mood, normal affect. SKIN: Warm, dry, normal turgor, no rashes or lesions noted Laboratory Results - last 24 hr 02/20/20 02/21/20 02/21/20 13:25 06:10 06:10 WBC 8.6 RBC 4.22 Hgb 12.5 Hct 38.2 MCV 90.4 MCH 29.5 MCHC 32.6 RDW 13.6 Plt Count 266 MPV 9.1 PTT (Actin FS) 53.4 H Sodium Potassium Chloride Carbon Dioxide Anion Gap BUN Creatinine Est GFR (CKD-EPI)AfAm Est GFR (CKD-EPI)NonAf Random Glucose Calcium Magnesium Stool Occult Blood Negative 02/21/20 06:10 WBC RBC Hgb Hct MCV MCH MCHC RDW Plt Count MPV PTT (Actin FS) Sodium 140 Potassium 4.0 Chloride 107 Carbon Dioxide 27 Anion Gap 6 L BUN 14.6 Creatinine 0.8 Est GFR (CKD-EPI)AfAm 93.53 Est GFR (CKD-EPI)NonAf 80.70 Random Glucose 91 Calcium 8.9 Magnesium 2.3 Stool Occult Blood Active Medications Generic Name Dose Route Start Last Admin Trade Name Freq PRN Reason Stop Dose Admin Chlorhexidine Gluconate 1 applic 02/18/20 22:00 02/20/20 21:42 Hibiclens For Decolonization - TP 1 applic HS MEG Administration Heparin Sodium (Porcine) 1,000 unit 02/18/20 17:47 Heparin - IVPUSH PRN PRN Heparin Heparin Sodium (Porcine) 5,000 unit 02/18/20 17:47 Heparin - IVPUSH PRN PRN Heparin Heparin Sodium/Dextrose 25,000 units in 500 mls @ 20 mls/hr 02/18/20 17:47 02/20/20 20:59 Heparin Infusion - IVPB Not Given TITR [facility] Protocol 1,000 UNITS/HR Melatonin 5 mg 02/18/20 17:47 02/20/20 21:42 Melatonin PO 5 mg HS PRN Administration INSOMNIA Metoprolol Succinate 50 mg 02/18/20 14:15 02/21/20 09:16 Toprol Xl - PO Not Given DAILY MEG Mupirocin 1 applic 02/18/20 22:00 02/21/20 09:15 Bactroban Ointment (For Decolonization) - NS 02/22/20 21:59 1 applic BID MEG Administration ASSESSMENT/PLAN: Problem List - Problems (1) Pulmonary embolism Assessment/Plan: Blateral PEs CTA 02/17/2020: extensive pulmonary emboli abdomen, right main pulmonary artery bifurcation with involvement of the right upper, middle and lower lobe pulmonary artery branches. Also extensive pulmonary emboli involving the left upper and left lower lobe pulmonary artery branches. Echo 02/18/2020: ef 55-60% - RV borderline dilated, RV systolic fx grossly normal, mild mr, mild tr, RV systolc pressure elevated 40-50 Echo 02/21/2020: ef 55-60%, RV normal in size, RV systolic fx is grossly normal, mild MR, mild TR, PASP at least 37mmhs on heparn drip IR to follow up for possible thrombectomy Code(s): I26.99 - OTHER PULMONARY EMBOLISM WITHOUT ACUTE COR PULMONALE (2) Acute respiratory failure Assessment/Plan: acute respiratory failure/dyspnea on exertion secondary to bilateral PEs. Echo repeated today continue heparin gtt On supplemental oxygen hematology consulted and following Outpatient hypercoagulable workup pre and post prior to d/c to assess for home oxygen use Code(s): J96.00 - ACUTE RESPIRATORY FAILURE, UNSP W HYPOXIA OR HYPERCAPNIA (3) Morbid obesity Assessment/Plan: outpatient follow up for weight loss Code(s): E66.01 - MORBID (SEVERE) OBESITY DUE TO EXCESS CALORIES (4) Hypertension Assessment/Plan: BP controlled Code(s): I10 - ESSENTIAL (PRIMARY) HYPERTENSION (5) Subclinical hypothyroidism Assessment/Plan: low TSH, normal T4 outpatient follow up Code(s): E03.9 - HYPOTHYROIDISM, UNSPECIFIED (6) DVT prophylaxis Assessment/Plan: on heparin drip, aptt monitoring Code(s): Z29.9 - ENCOUNTER FOR PROPHYLACTIC MEASURES, UNSPECIFIED Visit type - Emergency Visit Emergency Visit: Yes ED Registration Date: 02/17/20 Care time: The patient presented to the Emergency Department on the above date and was hospitalized for further evaluation of their emergent condition. - New Patient This patient is new to me today: Yes Date on this admission: 02/21/20 - Critical Care Critical Care patient: No - Discharge Referral Referred to [facility] Med P.C.: No
--- NOTE | 2020-02-21 11:42 | PN ---
Progress Note (short form) - Note Progress Note: s: no cp sob palps dizzy Current Medications Generic Name Dose Route Start Last Admin Trade Name Freq PRN Reason Stop Dose Admin Chlorhexidine Gluconate 1 applic 02/18/20 22:00 02/20/20 21:42 Hibiclens For Decolonization - TP 1 applic HS MEG Administration Heparin Sodium (Porcine) 1,000 unit 02/18/20 17:47 Heparin - IVPUSH PRN PRN Heparin Heparin Sodium (Porcine) 5,000 unit 02/18/20 17:47 Heparin - IVPUSH PRN PRN Heparin Heparin Sodium/Dextrose 25,000 units in 500 mls @ 20 mls/hr 02/18/20 17:47 02/20/20 20:59 Heparin Infusion - IVPB Not Given TITR [facility] Protocol 1,000 UNITS/HR Melatonin 5 mg 02/18/20 17:47 02/20/20 21:42 Melatonin PO 5 mg HS PRN Administration INSOMNIA Metoprolol Succinate 50 mg 02/18/20 14:15 02/21/20 09:16 Toprol Xl - PO Not Given DAILY MEG Mupirocin 1 applic 02/18/20 22:00 02/21/20 09:15 Bactroban Ointment (For Decolonization) - NS 02/22/20 21:59 1 applic BID MEG Administration Vital Signs Period Temp Pulse Resp BP Sys/Chinchilla Pulse Ox Last 24 Hr 98.1 F-98.8 F 64-83 14-20 120-127/57-77 99-100 Constitutional: Yes: No Distress, Calm Eyes: Yes: Conjunctiva Clear Neck: Yes: Supple, Trachea Midline Respiratory: Yes: CTA Bilaterally Gastrointestinal: Yes: Soft, Abdomen, Obese Cardiovascular: Yes: Regular Rate and Rhythm JVD: No Carotid Bruit: No PMI: Non-Displaced Heart Sounds: Yes: S1, S2 (rrr) Edema: No Peripheral Pulses WNL: Yes Neurological: Yes: Alert, Oriented Psychiatric: Yes: WNL CBC, BMP 02/21/20 06:10 02/21/20 06:10 TELE: sr ECG: Sinus tach 128bpm, NSST echo 01/2020: nl lv/rv, mild mr, mild tr, rvsp 40-50 Imaging - Results Chest X-ray: Report Reviewed Cat Scan: Report Reviewed EKG: Image Reviewed Assessment/Plan IMP: Bilateral pulmonary emboli Chronic HTN Sinus tach VPCs REC: 1. B/l PEs: -Thus far, hemodynamically stable -Echo shows unremarkable RV but rvsp is elevated likely due to PE-->plan to repeat echo today to monitor rv strain to help guide decision for IR. -cont ac -Elevated TnI and BNP secondary to b/l PEs possible RV strain, not c/w acs -unclear precipitant. Heme evaluation in progress 2. Chronic HTN: -stable 3. Sinus tach: -secondary to pulmonary emboli 4. VPCS: single, rare -Echo with nl lvef -Keep K+ and Mg2+ normalized
--- NOTE | 2020-02-21 11:55 | ECHO ---
Name: CORIE YANG Exam:Adult Echocardiogram Study Date: 02/21/2020 08:12 AM Age: 59 yrs Reason For Study: pulmonary embolism , limited study Height: 60 in Weight: 221 lb BSA: 1.9 m2 Doppler Measurements & Calculations MR max nery: 466.9 cm/sec TR max nery: 283.5 cm/sec MR max P.2 mmHg TR max P.2 mmHg Procedure Technically limited study. A limited two-dimensional transthoracic echocardiogram was performed (2D). Left Ventricle The left ventricle is normal in size. Left ventricular systolic function is normal. Ejection Fraction = 55- 60%. No regional wall motion abnormalities noted. Right Ventricle The right ventricle is normal size. The right ventricular systolic function is grossly normal. Atria The left atrial size is normal. Right atrial size is normal. Interatrial septum appears aneurysmal. Mitral Valve The mitral valve is normal in structure and function. There is mild mitral regurgitation. Tricuspid Valve The tricuspid valve is normal in structure and function. There is mild tricuspid regurgitation. PASP is at least 37 mmHg if RA pressure is assumed 3 mmHg. Aortic Valve The aortic valve is normal in structure and function. No aortic regurgitation is present. Pulmonic Valve The pulmonic valve is not well visualized. Great Vessels The aortic root is normal size. Pericardium/Pleura There is no pericardial effusion. Interpretation Summary Technically limited study A limited two-dimensional transthoracic echocardiogram was performed (2D). The left ventricle is normal in size. Left ventricular systolic function is normal. No regional wall motion abnormalities noted. Ejection Fraction = 55-60%. The right ventricle is normal size. The right ventricular systolic function is grossly normal. The left atrial size is normal. Right atrial size is normal. Interatrial septum appears aneurysmal There is mild mitral regurgitation. There is mild tricuspid regurgitation. PASP is at least 37 mmHg if RA pressure is assumed 3 mmHg There is no pericardial effusion. Peterson Denson MD 02/21/2020 11:54 AM
[2020-02-21 12:54] VITALS: BMI 44.5
--- NOTE | 2020-02-21 14:58 | PN ---
Progress Note (short form) - Note Progress Note: PULMONARY Denies shortness of breath, chest pain or palpitations. Repeat echocardiogram without evidence of right heart dysfunction. Vital Signs Period Temp Pulse Resp BP Sys/Chinchilla Pulse Ox Last 24 Hr 98.1 F-98.8 F 64-77 14-20 122-127/57-70 99-100 Intake & Output 02/18/20 02/19/20 02/20/20 02/21/20 23:59 23:59 23:59 23:59 Intake Total 706 466 788 388 Output Total 700 Balance 706 466 88 388 Weight 100.244 kg 100.698 kg 103.6 kg Gen: NAD at rest Heart: RRR Lung: decreased breath sounds at the bases Abd: soft, nontender Ext: no edema CBC, BMP 02/21/20 06:10 02/21/20 06:10 Active Medications Chlorhexidine Gluconate (Hibiclens For Decolonization -) 1 applic TP HS [facility] Last Admin: 02/20/20 21:42 Dose: 1 applic Documented by: Heparin Sodium (Porcine) (Heparin -) 1,000 unit IVPUSH PRN PRN PRN Reason: Heparin Heparin Sodium (Porcine) (Heparin -) 5,000 unit IVPUSH PRN PRN PRN Reason: Heparin Heparin Sodium/Dextrose (Heparin Infusion -) 25,000 units in 500 mls @ 20 mls/hr IVPB TITR [facility]; Protocol Last Admin: 02/20/20 20:59 Dose: Not Given Documented by: Melatonin (Melatonin) 5 mg PO HS PRN PRN Reason: INSOMNIA Last Admin: 02/20/20 21:42 Dose: 5 mg Documented by: Metoprolol Succinate (Toprol Xl -) 50 mg PO DAILY [facility] Last Admin: 02/21/20 09:16 Dose: Not Given Documented by: Mupirocin (Bactroban Ointment (For Decolonization) -) 1 applic NS BID [facility] Stop: 02/22/20 21:59 Last Admin: 02/21/20 09:15 Dose: 1 applic Documented by: A/P Bilateral Pulmonary Emboli Pulmonary HTN HTN - continue anticoagulation - O2 to keep SpO2>90% - can start oral DOAC - outpt age appropriate cancer screening
--- NOTE | 2020-02-21 19:07 | PN.HO ---
Progress Note (short form) - Note Progress Note: Patient seen and examined Feels well Last Vital Signs Temp Pulse Resp BP Pulse Ox 98.7 F 79 21 H 156/86 99 02/21/20 12:53 02/21/20 16:36 02/21/20 16:36 02/21/20 16:36 02/21/20 16:36 Cor: RSR, No murmurs, No gallops Lungs: Clear to P&A Abd: Soft, Normal bowel sounds, No organomegaly Ext:No significant edema Labs/Meds reviewed a/P 59 yo F PMH HTN, B12 deficiency presents to the ED for worsening SOB x 3 weeks. CTA -- extensive b/l PE in all lobes b/l Venous duplex neg. PT/PTT-nl/Hgb 13/Cr and LFTs nl HAd been relatively sedentary during COVID . Brother has h/o DVT ? Unprovoked. Obesity and relative sedentarines are risk factors. Brother also with h/o DVT Discussed pros/cons of coumadin vs DOACs Given obesity , BMI 43, DOACs -- could monitor peak , trough levels of antifactor Xa and with subtherapeutic levels consider coumadin over DOAC, Discussed this in detail with patient. She seems to prefer DOACs and understands the lack of robust data inthis setting Given family h/o, although hereditary thrombophilia will not effect decision on duration of a/c , would consider thrombophilia w/u outpatient Will need age appropriate cancer screening-- discussed with patient. 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 Needs w/u of abnormal mammogram ( 8mm rt. retroareolar mass)--needs breast surgery referral Eventually will need GI screening aswell Discussed wt. loss, increased physical activity would consider detention a/c at this time with periodic assessment of risks/benefits by hematology team
[2020-02-21] MEDS: CHLORHEXIDINE GLUCONATE 4% CLEANSER FOR DECOLONIZATION TP SCH (21:35)
--- NOTE | 2020-02-21 22:03 | EKG ---
Test Reason : Blood Pressure : / mmHG Vent. Rate : 084 BPM Atrial Rate : 084 BPM P-R Int : 152 ms QRS Dur : 084 ms QT Int : 456 ms P-R-T Axes : 049 049 067 degrees QTc Int : 538 ms SINUS RHYTHM WITH OCCASIONAL PREMATURE VENTRICULAR COMPLEXES NONSPECIFIC T WAVE ABNORMALITY PROLONGED QT ABNORMAL ECG WHEN COMPARED WITH ECG OF 17-FEB-2020 14:11, PREMATURE VENTRICULAR COMPLEXES ARE NOW PRESENT VENT. RATE HAS DECREASED Confirmed by SHALOM MAJANO MD ([id number]) on 02/21/2020 10:03:41 PM Referred By: Confirmed By:SHALOM MAJANO MD
[2020-02-21] MEDS: MELATONIN 5 MG TABLETS PO PRN (22:11)
[2020-02-22 06:44] LABS: BASO % 0.4 % (0-2.0); EOS % 2.1 % (0-4.5); HEMATOCRIT 38.4 % (32.4-45.2); HEMOGLOBIN 12.6 GM/dL (10.7-15.3); LYMPH % 32.5 % (8-40); MCH 29.7 pg (25.7-33.7); MCHC 32.8 g/dl (32.0-36.0); MEAN CELL VOLUME 90.6 fl (80-96); MEAN PLT VOLUME 9.3 fl (7.5-11.1); MONO % 8.3 % (3.8-10.2); NEUT % 56.7 % (42.8-82.8); PLATELET COUNT 266 K/MM3 (134-434); RBC 4.24 M/mm3 (3.60-5.2); RDW 13.6 % (11.6-15.6); WHITE BLOOD COUNT 8.9 K/mm3 (4.0-10.0)
[2020-02-22 07:08] LABS: ALBUMIN 3.1 g/dl (3.4-5.0); BILIRUBIN,TOTAL 0.8 mg/dL (0.2-1); BLOOD UREA NITROGEN 15.5 mg/dL (7-18); CALCIUM 8.8 mg/dL (8.5-10.1); CREATININE 0.8 mg/dL (0.55-1.3); MAGNESIUM 2.1 mg/dL (1.8-2.4); POTASSIUM 3.8 mmol/L (3.5-5.1); TOT PROT 6.3 g/dl (6.4-8.2)
[2020-02-22 07:42] LABS: INR 0.99 (0.83-1.09); PROTHROMBIN TIME (PATIENT) 11.7 SEC (9.7-13.0)
[2020-02-22] MEDS: MUPIROCIN 2% TOPICAL OINTMENT FOR DECOLONIZATION NS SCH (09:40)
[2020-02-22] MEDS ORDERED: APIXABAN 5 MG TABLET PO SCH ×2 (12:00→12:09)
--- NOTE | 2020-02-22 12:37 | PN ---
Progress Note (short form) - Note Progress Note: cc: s: no cp sob palps dizzy Current Medications Generic Name Dose Route Start Last Admin Trade Name Freq PRN Reason Stop Dose Admin Chlorhexidine Gluconate 1 applic 02/18/20 22:00 02/20/20 21:42 Hibiclens For Decolonization - TP 1 applic HS MEG Administration Heparin Sodium (Porcine) 1,000 unit 02/18/20 17:47 Heparin - IVPUSH PRN PRN Heparin Heparin Sodium (Porcine) 5,000 unit 02/18/20 17:47 Heparin - IVPUSH PRN PRN Heparin Heparin Sodium/Dextrose 25,000 units in 500 mls @ 20 mls/hr 02/18/20 17:47 02/20/20 20:59 Heparin Infusion - IVPB Not Given TITR MEG Protocol 1,000 UNITS/HR Melatonin 5 mg 02/18/20 17:47 02/20/20 21:42 Melatonin PO 5 mg HS PRN Administration INSOMNIA Metoprolol Succinate 50 mg 02/18/20 14:15 02/21/20 09:16 Toprol Xl - PO Not Given DAILY MEG Mupirocin 1 applic 02/18/20 22:00 02/21/20 09:15 Bactroban Ointment (For Decolonization) - NS 02/22/20 21:59 1 applic BID MEG Administration Vital Signs Period Temp Pulse Resp BP Sys/Chinchilla Pulse Ox Last 24 Hr 98.1 F-98.8 F 64-83 14-20 120-127/57-77 99-100 Constitutional: Yes: No Distress, Calm Eyes: Yes: Conjunctiva Clear Neck: Yes: Supple, Trachea Midline Respiratory: Yes: CTA Bilaterally Gastrointestinal: Yes: Soft, Abdomen, Obese Cardiovascular: Yes: Regular Rate and Rhythm JVD: No Carotid Bruit: No PMI: Non-Displaced Heart Sounds: Yes: S1, S2 (rrr) Edema: No Peripheral Pulses WNL: Yes Neurological: Yes: Alert, Oriented Psychiatric: Yes: WNL TELE: sr ECG: Sinus tach 128bpm, NSST echo 01/2020: nl lv/rv, mild mr, mild tr, rvsp 40-50 repeat echo 01/2020 nl LV function, nl RV, IAS aneurysmal, mild MR, mild TR, PASP at least 37 mmHg Imaging - Results Chest X-ray: Report Reviewed Cat Scan: Report Reviewed EKG: Image Reviewed Assessment/Plan IMP: Bilateral pulmonary emboli Chronic HTN Sinus tach VPCs REC: 1. B/l PEs: -remains hemodynamically stable -Echo shows unremarkable RV but rvsp is elevated likely due to PE, improved RVSP on repeat echo -cont ac - manage per heme -Elevated TnI and BNP secondary to b/l PEs possible RV strain, not c/w acs -unclear precipitant. Heme evaluation in progress 2. Chronic HTN: -stable 3. Sinus tach: -secondary to pulmonary emboli, improving 4. VPCS: single, rare -Echo with nl lvef -Keep K+ and Mg2+ normalized
--- NOTE | 2020-02-22 12:42 | PN ---
Progress Note (short form) - Note Progress Note: PULMONARY Denies shortness of breath, chest pain or palpitations. Vital Signs Period Temp Pulse Resp BP Sys/Chinchilla Pulse Ox Last 24 Hr 97.3 F-98.7 F 64-79 15-21 109-156/55-86 99-100 Gen: NAD at rest Heart: RRR Lung: decreased breath sounds at the bases Abd: soft, nontender Ext: no edema CBC, BMP 02/22/20 05:20 02/22/20 05:20 Active Medications Apixaban (Eliquis -) 10 mg PO BID [facility] Chlorhexidine Gluconate (Hibiclens For Decolonization -) 1 applic TP HS [facility] Last Admin: 02/21/20 21:35 Dose: Not Given Documented by: Heparin Sodium (Porcine) (Heparin -) 1,000 unit IVPUSH PRN PRN PRN Reason: Heparin Heparin Sodium (Porcine) (Heparin -) 5,000 unit IVPUSH PRN PRN PRN Reason: Heparin Heparin Sodium/Dextrose (Heparin Infusion -) 25,000 units in 500 mls @ 20 mls/hr IVPB TITR MEG; Protocol Last Admin: 02/20/20 20:59 Dose: Not Given Documented by: Melatonin (Melatonin) 5 mg PO HS PRN PRN Reason: INSOMNIA Last Admin: 02/21/20 22:11 Dose: 5 mg Documented by: Metoprolol Succinate (Toprol Xl -) 50 mg PO DAILY [facility] Last Admin: 02/22/20 09:40 Dose: Not Given Documented by: Mupirocin (Bactroban Ointment (For Decolonization) -) 1 applic NS BID [facility] Stop: 02/22/20 21:59 Last Admin: 02/22/20 09:40 Dose: 1 applic Documented by: A/P Bilateral Pulmonary Emboli Pulmonary HTN HTN - will start eliquis 10mg BID - check Factor Xa levels - O2 to keep SpO2>90% - outpt age appropriate cancer screening
[2020-02-22] MEDS: APIXABAN 5 MG TABLET PO SCH ×2 (13:16→22:10)
[2020-02-22] MEDS: MELATONIN 5 MG TABLETS PO PRN (22:10)
[2020-02-22] MEDS: CHLORHEXIDINE GLUCONATE 4% CLEANSER FOR DECOLONIZATION TP SCH (22:12)
[2020-02-23 07:11] LABS: INR 1.35 (0.83-1.09)
[2020-02-23 07:12] LABS: BASO % 0.3 % (0-2.0); EOS % 1.8 % (0-4.5); HEMATOCRIT 41.6 % (32.4-45.2); HEMOGLOBIN 13.7 GM/dL (10.7-15.3); LYMPH % 35.4 % (8-40); MCH 29.7 pg (25.7-33.7); MCHC 32.9 g/dl (32.0-36.0); MEAN CELL VOLUME 90.2 fl (80-96); MEAN PLT VOLUME 9.3 fl (7.5-11.1); MONO % 6.2 % (3.8-10.2); NEUT % 56.3 % (42.8-82.8); PLATELET COUNT 309 K/MM3 (134-434); RBC 4.61 M/mm3 (3.60-5.2); RDW 14.1 % (11.6-15.6); WHITE BLOOD COUNT 8.5 K/mm3 (4.0-10.0)
[2020-02-23 07:13] LABS: ACTIVATED PTT 34.7 SECONDS (25.2-36.5)
[2020-02-23 07:37] LABS: ALBUMIN 3.4 g/dl (3.4-5.0); BILIRUBIN,TOTAL 0.9 mg/dL (0.2-1); BLOOD UREA NITROGEN 12.7 mg/dL (7-18); CALCIUM 9.1 mg/dL (8.5-10.1); CREATININE 0.8 mg/dL (0.55-1.3); MAGNESIUM 2.1 mg/dL (1.8-2.4); POTASSIUM 3.8 mmol/L (3.5-5.1); TOT PROT 6.8 g/dl (6.4-8.2)
--- NOTE | 2020-02-23 08:11 | PN ---
Progress Note, Physician Chief Complaint: Seen and examined in ICU-[facility]. On RA observed ambulating in room. No dyspnea or chest pain. History of Present Illness: Patient is a 59 year old female with a significant past medical history of HTN, morbid obesity, B12 deficiency, seasonal allergies, arthritis. She presented to the ED on 02/17/2020 for shortness of breath with exertion and was found to have bilateral PEs per CTA. She denies recent travel, past MIs or any history of DVT or PE. - Current Medication List Current Medications: Active Medications Apixaban (Eliquis -) 10 mg PO BID [facility] Last Admin: 02/22/20 22:10 Dose: 10 mg Documented by: Chlorhexidine Gluconate (Hibiclens For Decolonization -) 1 applic TP HS [facility] Last Admin: 02/22/20 22:12 Dose: Not Given Documented by: Melatonin (Melatonin) 5 mg PO HS PRN PRN Reason: INSOMNIA Last Admin: 02/22/20 22:10 Dose: 5 mg Documented by: Metoprolol Succinate (Toprol Xl -) 50 mg PO DAILY [facility] Last Admin: 02/22/20 09:40 Dose: Not Given Documented by: - Objective Vital Signs: Vital Signs Temperature 97.8 F 02/22/20 22:15 Pulse Rate 80 02/22/20 22:15 Respiratory Rate 20 02/22/20 22:15 Blood Pressure 142/60 02/22/20 22:15 O2 Sat by Pulse Oximetry (%) 100 02/22/20 22:15 Constitutional: Yes: Well Nourished, No Distress, Calm Eyes: Yes: WNL, Conjunctiva Clear HENT: Yes: WNL, Atraumatic, Normocephalic Neck: Yes: WNL, Supple, Trachea Midline Cardiovascular: Yes: WNL, Regular Rate and Rhythm Respiratory: Yes: WNL, Regular, CTA Bilaterally, Diminished (at bases) Gastrointestinal: Yes: WNL, Normal Bowel Sounds ...Rectal Exam: Yes: Deferred Genitourinary: Yes: WNL Breast(s): Yes: WNL Musculoskeletal: Yes: WNL Extremities: Yes: WNL Edema: No Peripheral Pulses WNL: Yes Peripheral Pulses: Left Radial: 2+, Right Radial: 2+, Left Doralis Pedis: 2+, Right Dorsalis Pedis: 2+, Left Femoral: 2+, Right Femoral: 2+ Integumentary: Yes: WNL Neurological: Yes: WNL, Alert, Oriented ...Motor Strength: WNL Psychiatric: Yes: WNL Labs: CBC, BMP 02/23/20 05:50 02/23/20 05:50 INR, PTT INR 1.35 (0.83-1.09) H 02/23/20 05:50 - ....Imaging Cat Scan: Report Reviewed ( extensive pulmonary emboli abdomen, right main pulmonary artery bifurcation with involvement of the right upper, middle and lower lobe pulmonary artery branches. Also extensive pulmonary emboli involving the left upper and left lower lobe pulmonary artery branches.) Other: Report Reviewed (Echo 02/18/2020: ef 55-60% - RV borderline dilated, RV systolic fx grossly normal, mild mr, mild tr, RV systolc pressure elevated 40-50 Echo 02/21/2020: ef 55-60%, RV normal in size, RV systolic fx is grossly normal, mild MR, mild TR, PASP at least 37mmhs) Problem List - Problems (1) Pulmonary embolism, bilateral Assessment/Plan: BL PE on imaging on RA c/w eliquis heme following will require retirement AC Factor X pending Code(s): I26.99 - OTHER PULMONARY EMBOLISM WITHOUT ACUTE COR PULMONALE (2) Prophylactic measure Assessment/Plan: FEN Fluids: adequate PO intake Electrolytes: monitor & replete as needed Nutrition: low sodium diet DVT moderate risk eliquis Dispo Maintain as inpatient-can transfer off tele full code discharge planning Code(s): Z29.9 - ENCOUNTER FOR PROPHYLACTIC MEASURES, UNSPECIFIED (3) Acute respiratory failure Assessment/Plan: resolved maintain SPO2 100 on RA IS q1H while awake increase ambulation Code(s): J96.00 - ACUTE RESPIRATORY FAILURE, UNSP W HYPOXIA OR HYPERCAPNIA (4) Hypertension Assessment/Plan: normotensive c/w metoprolol,chloralidone Code(s): I10 - ESSENTIAL (PRIMARY) HYPERTENSION (5) Morbid obesity Assessment/Plan: BMI 44 counseled on weight loss Code(s): E66.01 - MORBID (SEVERE) OBESITY DUE TO EXCESS CALORIES (6) Subclinical hypothyroidism Assessment/Plan: TFT pending Code(s): E03.9 - HYPOTHYROIDISM, UNSPECIFIED Visit type - Emergency Visit Emergency Visit: Yes ED Registration Date: 02/17/20 Care time: The patient presented to the Emergency Department on the above date and was hospitalized for further evaluation of their emergent condition. - New Patient This patient is new to me today: Yes Date on this admission: 02/23/20 - Critical Care Critical Care patient: No - Discharge Referral Referred to [facility] Med P.C.: No
[2020-02-23] MEDS: APIXABAN 5 MG TABLET PO SCH ×2 (10:20→21:34)
--- NOTE | 2020-02-23 13:29 | PN ---
Progress Note (short form) - Note Progress Note: PULMONARY Denies shortness of breath, chest pain or palpitations. No signs of bleeding. Vital Signs Period Temp Pulse Resp BP Sys/Chinchilla Pulse Ox Last 24 Hr 97.8 F-97.9 F 64-85 16-25 124-142/54-70 100-100 Gen: NAD at rest Heart: RRR Lung: decreased breath sounds at the bases Abd: soft, nontender Ext: no edema CBC, BMP 02/23/20 05:50 02/23/20 05:50 Active Medications Apixaban (Eliquis -) 10 mg PO BID [facility] Last Admin: 02/23/20 10:20 Dose: 10 mg Documented by: Chlorhexidine Gluconate (Hibiclens For Decolonization -) 1 applic TP HS [facility] Last Admin: 02/22/20 22:12 Dose: Not Given Documented by: Chlorthalidone (Hygroton -) 25 mg PO DAILY [facility] Melatonin (Melatonin) 5 mg PO HS PRN PRN Reason: INSOMNIA Last Admin: 02/22/20 22:10 Dose: 5 mg Documented by: Metoprolol Succinate (Toprol Xl -) 50 mg PO DAILY [facility] Last Admin: 02/23/20 10:18 Dose: Not Given Documented by: A/P Bilateral Pulmonary Emboli Pulmonary HTN HTN - continue eliquis 10mg BID - check Factor Xa level in AM - O2 to keep SpO2>90% - outpt age appropriate cancer screening
--- NOTE | 2020-02-23 13:32 | PN ---
Progress Note (short form) - Note Progress Note: cc: dyspnea s: no cp sob palps dizzy Current Medications Generic Name Dose Route Start Last Admin Trade Name Freq PRN Reason Stop Dose Admin Apixaban 10 mg 02/22/20 13:15 02/23/20 10:20 Eliquis - PO 10 mg BID MEG Administration Chlorhexidine Gluconate 1 applic 02/18/20 22:00 02/22/20 22:12 Hibiclens For Decolonization - TP Not Given HS MEG Chlorthalidone 25 mg 02/24/20 10:00 Hygroton - PO DAILY MEG Melatonin 5 mg 02/18/20 17:47 02/22/20 22:10 Melatonin PO 5 mg HS PRN Administration INSOMNIA Metoprolol Succinate 50 mg 02/18/20 14:15 02/23/20 10:18 Toprol Xl - PO Not Given DAILY MEG Vital Signs Period Temp Pulse Resp BP Sys/Chinchilla Pulse Ox Last 24 Hr 97.8 F-97.9 F 64-85 16-25 124-142/54-70 100-100 Constitutional: Yes: No Distress, Calm Eyes: Yes: Conjunctiva Clear Neck: Yes: Supple, Trachea Midline Respiratory: Yes: CTA Bilaterally Gastrointestinal: Yes: Soft, Abdomen, Obese Cardiovascular: Yes: Regular Rate and Rhythm JVD: No Carotid Bruit: No PMI: Non-Displaced Heart Sounds: Yes: S1, S2 (rrr) Edema: No Peripheral Pulses WNL: Yes Neurological: Yes: Alert, Oriented Psychiatric: Yes: not agitated no jaundice, diaphoresis TELE: sr ECG: Sinus tach 128bpm, NSST echo 01/2020: nl lv/rv, mild mr, mild tr, rvsp 40-50 repeat echo 01/2020 nl LV function, nl RV, IAS aneurysmal, mild MR, mild TR, PASP at least 37 mmHg Imaging - Results Chest X-ray: Report Reviewed Cat Scan: Report Reviewed EKG: Image Reviewed Assessment/Plan IMP: Bilateral pulmonary emboli Chronic HTN Sinus tach VPCs REC: 1. B/l PEs: -remains hemodynamically stable -Echo shows unremarkable RV but rvsp is elevated likely due to PE, improved RVSP on repeat echo -cont ac - manage per heme, pulm - now on eliquis -Elevated TnI and BNP secondary to b/l PEs possible RV strain, not c/w acs -unclear precipitant,workup per heme 2. Chronic HTN: -stable 3. Sinus tach: -secondary to pulmonary emboli, resolved 4. VPCS: single, rare -Echo with nl lvef -Keep K+ and Mg2+ normalized
[2020-02-23] MEDS: MELATONIN 5 MG TABLETS PO PRN (21:35)
[2020-02-24 06:48] LABS: BASO % 0.6 % (0-2.0); EOS % 2.2 % (0-4.5); HEMATOCRIT 41.2 % (32.4-45.2); HEMOGLOBIN 13.5 GM/dL (10.7-15.3); LYMPH % 34.5 % (8-40); MCH 29.8 pg (25.7-33.7); MCHC 32.9 g/dl (32.0-36.0); MEAN CELL VOLUME 90.7 fl (80-96); MEAN PLT VOLUME 9.2 fl (7.5-11.1); MONO % 8.3 % (3.8-10.2); NEUT % 54.4 % (42.8-82.8); PLATELET COUNT 305 K/MM3 (134-434); RBC 4.54 M/mm3 (3.60-5.2); RDW 13.6 % (11.6-15.6); WHITE BLOOD COUNT 8.3 K/mm3 (4.0-10.0)
[2020-02-24 06:56] LABS: INR 1.44 (0.83-1.09)
[2020-02-24 07:13] LABS: ALBUMIN 3.2 g/dl (3.4-5.0); BILIRUBIN,TOTAL 0.5 mg/dL (0.2-1); BLOOD UREA NITROGEN 17.5 mg/dL (7-18); CALCIUM 8.9 mg/dL (8.5-10.1); CREATININE 0.8 mg/dL (0.55-1.3); MAGNESIUM 2.1 mg/dL (1.8-2.4); POTASSIUM 4.2 mmol/L (3.5-5.1); TOT PROT 6.4 g/dl (6.4-8.2)
--- NOTE | 2020-02-24 07:27 | DS ---
Physical Exam: SUBJECTIVE: Patient seen and examined OBJECTIVE: Vital Signs Period Temp Pulse Resp BP Sys/Chinchilla Pulse Ox Last 24 Hr 98 F 58-77 18-20 123-140/57-80 94-100 PHYSICAL EXAM Constitutional: Yes: Well Nourished, No Distress, Calm Eyes: Yes: WNL, Conjunctiva Clear HENT: Yes: WNL, Atraumatic, Normocephalic Neck: Yes: WNL, Supple, Trachea Midline Cardiovascular: Yes: WNL, Regular Rate and Rhythm Respiratory: Yes: WNL, Regular, CTA Bilaterally, Diminished (at bases) Gastrointestinal: Yes: WNL, Normal Bowel Sounds ...Rectal Exam: Yes: Deferred Genitourinary: Yes: WNL Breast(s): Yes: WNL Musculoskeletal: Yes: WNL Extremities: Yes: WNL Edema: No Peripheral Pulses WNL: Yes Peripheral Pulses: Left Radial: 2+, Right Radial: 2+, Left Doralis Pedis: 2+, Right Dorsalis Pedis: 2+, Left Femoral: 2+, Right Femoral: 2+ Integumentary: Yes: WNL Neurological: Yes: WNL, Alert, Oriented ...Motor Strength: WNL Psychiatric: Yes: WNL LABS Laboratory Results - last 24 hr 02/23/20 02/24/20 02/24/20 05:50 05:35 05:35 WBC 8.3 RBC 4.54 Hgb 13.5 Hct 41.2 MCV 90.7 MCH 29.8 MCHC 32.9 RDW 13.6 Plt Count 305 MPV 9.2 Absolute Neuts (auto) 4.5 Neutrophils % 54.4 Lymphocytes % 34.5 Monocytes % 8.3 Eosinophils % 2.2 Basophils % 0.6 Nucleated RBC % 0 PT with INR 17.00 H INR 1.44 H Sodium 142 Potassium 3.8 Chloride 105 Carbon Dioxide 29 Anion Gap 8 BUN 12.7 Creatinine 0.8 Est GFR (CKD-EPI)AfAm 93.53 Est GFR (CKD-EPI)NonAf 80.70 Random Glucose 83 Calcium 9.1 Magnesium 2.1 Total Bilirubin 0.9 AST 24 ALT 29 Alkaline Phosphatase 93 Total Protein 6.8 Albumin 3.4 02/24/20 05:35 WBC RBC Hgb Hct MCV MCH MCHC RDW Plt Count MPV Absolute Neuts (auto) Neutrophils % Lymphocytes % Monocytes % Eosinophils % Basophils % Nucleated RBC % PT with INR INR Sodium 143 Potassium 4.2 Chloride 109 H Carbon Dioxide 25 Anion Gap 8 BUN 17.5 Creatinine 0.8 Est GFR (CKD-EPI)AfAm 93.53 Est GFR (CKD-EPI)NonAf 80.70 Random Glucose 83 Calcium 8.9 Magnesium 2.1 Total Bilirubin 0.5 AST 24 ALT 33 Alkaline Phosphatase 85 Total Protein 6.4 Albumin 3.2 L HOSPITAL COURSE: Date of Admission:02/17/20 Date of Discharge: 02/24/20 - Problems (1) Pulmonary embolism, bilateral Assessment/Plan: BL PE on imaging on RA c/w eliquis 10mg bid x 1 week then 5mg bid heme following will require custodial AC Factor X pending can f/u with Dr Francois Code(s): I26.99 - OTHER PULMONARY EMBOLISM WITHOUT ACUTE COR PULMONALE (2) Prophylactic measure Assessment/Plan: FEN Fluids: adequate PO intake Electrolytes: monitored & repleted Nutrition: low sodium diet DVT moderate risk eliquis longterm Dispo discharge planning to home Code(s): Z29.9 - ENCOUNTER FOR PROPHYLACTIC MEASURES, UNSPECIFIED (3) Acute respiratory failure Assessment/Plan: resolved maintain SPO2 100 on RA IS q1H while awake increase ambulation Code(s): J96.00 - ACUTE RESPIRATORY FAILURE, UNSP W HYPOXIA OR HYPERCAPNIA (4) Hypertension Assessment/Plan: normotensive c/w metoprolol,chloralidone Code(s): I10 - ESSENTIAL (PRIMARY) HYPERTENSION (5) Morbid obesity Assessment/Plan: BMI 44 counseled on weight loss Code(s): E66.01 - MORBID (SEVERE) OBESITY DUE TO EXCESS CALORIES Medically stable for dc to follow up with cardiology, pulmonary, hemetology, GI screening and agency service representative f/u for breast mass. Minutes to complete discharge: 45 Discharge Summary Problems reviewed: Yes Reason For Visit: RIGHT VENTRICULAR DILATION,PULMONARY EMBOLISM Current Active Problems Acute respiratory failure (Acute) DVT prophylaxis (Acute) Hypertension (Acute) Morbid obesity (Acute) Prophylactic measure (Acute) Pulmonary embolism (Acute) Pulmonary embolism, bilateral (Acute) Subclinical hypothyroidism (Acute) Condition: Improved - Instructions Diet, Activity, Other Instructions: DISCHARGE YOUR VISIT You came to the hospital because developed pulmonary embolis in both of your lungs. You were given a blood thinner to help dissolve the clots. A hemetologist, Dr Chua, saw you and blood tests were sent to determine the cause of the clots. Not all the results are back-follow with Dr Chua to determine how long you'll need to stay on the ELIQUIS(APIXABAN). You need to follow also with your agency service representative regarding abnormal mammogram ( 8mm rt. retroareolar mass). Eventually will need GI screening as well-You canb follow with Dr Patricia or Dr Lindsay. Make an appointment to follow up with cardiology-either Dr White or Bonnie. If any of the test indicate a rheumatological cause you can see Dr Madrid. MEDICATIONS Please continue to take your home medications as prescribed. There was no changes NEW APIXABAN(ELIQUIS) 10mg twice a day x 1 week, then 5mg twice a day DIET Continue your home diet ADDITIONAL CARE Please make an appointment to see your primary care provider, 1 week from today. All other number are in the discharge summary ADDITIONAL INFORMATION Please call 911 or come directly to the emergency department if you experience unusual headache, vision change, shortness of breath, chest pain, numbness, tingling, loss of alertness/awareness, loss of function, unusual bleeding or any alarming symptoms. Thank you for allowing me to care for you. George Gamble, [facility], [facility] [phone] Referrals: Janusz Cespedes DO [Staff Physician] - (call for appointment for GI work up) Miller Stewart MD [Staff Physician] - 1 Week (call for appointment) Levar Madrid MD [Staff Physician] - (don't need to see unless blood work indicate a rheumotological issue) Fiordaliza Patricia DO [Staff Physician] - Fiordaliza Delatorre MD [Primary Care Provider] - Toma Swanson MD [Staff Physician] - 1 Week (call for appointment) Silverio Crocker MD, MD [Staff Physician] - 1 Month (call for appointment) Disposition: HOME - Home Medications Comprehensive Discharge Medication List: Ambulatory Orders Chlorthalidone [Hygroton -] 25 mg PO DAILY 02/17/20 Levocetirizine Dihydrochloride [Xyzal] 5 mg PO DAILY 02/17/20 Apixaban [Eliquis -] 10 mg PO BID #60 tablet 02/24/20 Melatonin 5 mg PO HS PRN tab 02/24/20 Prescription Drug Monitoring Program (I-STOP) results: I-STOP not reviewed Problem List - Problems (1) Pulmonary embolism, bilateral Code(s): I26.99 - OTHER PULMONARY EMBOLISM WITHOUT ACUTE COR PULMONALE (2) Prophylactic measure Code(s): Z29.9 - ENCOUNTER FOR PROPHYLACTIC MEASURES, UNSPECIFIED (3) Acute respiratory failure Code(s): J96.00 - ACUTE RESPIRATORY FAILURE, UNSP W HYPOXIA OR HYPERCAPNIA (4) Hypertension Code(s): I10 - ESSENTIAL (PRIMARY) HYPERTENSION (5) Morbid obesity Code(s): E66.01 - MORBID (SEVERE) OBESITY DUE TO EXCESS CALORIES (6) Subclinical hypothyroidism Code(s): E03.9 - HYPOTHYROIDISM, UNSPECIFIED This patient is new to me today: No Emergency Visit: Yes ED Registration Date: 02/17/20 Care time: The patient presented to the Emergency Department on the above date and was hospitalized for further evaluation of their emergent condition. Critical Care patient: No - Discharge Referral Referred to [facility] Med P.C.: No
[2020-02-24] MEDS ORDERED: PT OWN MED DRAWER 7, Y5N ONE (09:17)
[2020-02-24] MEDS: APIXABAN 5 MG TABLET PO SCH (09:40)
[2020-02-24] MEDS ORDERED: CHLORTHALIDONE 25 MG TABLET PO SCH (10:00)
--- NOTE | 2020-02-24 11:29 | PN ---
Progress Note (short form) - Note Progress Note: PULMONARY Denies shortness of breath, chest pain or palpitations. No signs of bleeding. Vital Signs Period Temp Pulse Resp BP Sys/Chinchilla Pulse Ox Last 24 Hr 98 F 58-74 18-20 123-140/57-80 94-100 Gen: NAD at rest Heart: RRR Lung: decreased breath sounds at the bases Abd: soft, nontender Ext: no edema CBC, BMP 02/24/20 05:35 02/24/20 05:35 Abnormal Lab Results 02/24/20 02/24/20 05:35 05:35 PT with INR 17.00 H INR 1.44 H Chloride 109 H Albumin 3.2 L A/P Bilateral Pulmonary Emboli Pulmonary HTN HTN - continue eliquis 10mg BID x 7 days total then maintenance dose 5mg BID - O2 to keep SpO2>90% - outpt age appropriate cancer screening
--- NOTE | 2020-02-24 12:19 | PN ---
Progress Note (short form) - Note Progress Note: s: no cp sob palps dizzy Current Medications Generic Name Dose Route Start Last Admin Trade Name Freq PRN Reason Stop Dose Admin Apixaban 10 mg 02/22/20 13:15 02/24/20 09:40 Eliquis - PO 10 mg BID MEG Administration Chlorhexidine Gluconate 1 applic 02/18/20 22:00 02/22/20 22:12 Hibiclens For Decolonization - TP Not Given HS MEG Chlorthalidone 25 mg 02/24/20 10:00 02/24/20 11:39 Hygroton - PO Not Given DAILY MEG Melatonin 5 mg 02/18/20 17:47 02/23/20 21:35 Melatonin PO 5 mg HS PRN Administration INSOMNIA Metoprolol Succinate 50 mg 02/18/20 14:15 02/24/20 11:39 Toprol Xl - PO Not Given DAILY MEG Vital Signs Period Temp Pulse Resp BP Sys/Chinchilla Pulse Ox Last 24 Hr 98 F 58-74 18-20 123-140/57-75 94-100 Constitutional: Yes: No Distress, Calm Eyes: Yes: Conjunctiva Clear Neck: Yes: Supple, Trachea Midline Respiratory: Yes: CTA Bilaterally Gastrointestinal: Yes: Soft, Abdomen, Obese Cardiovascular: Yes: Regular Rate and Rhythm JVD: No Carotid Bruit: No PMI: Non-Displaced Heart Sounds: Yes: S1, S2 (rrr) Edema: No Peripheral Pulses WNL: Yes Neurological: Yes: Alert, Oriented Psychiatric: Yes: WNL CBC, BMP 02/24/20 05:35 02/24/20 05:35 TELE: sr ECG: Sinus tach 128bpm, NSST echo 01/2020: nl lv/rv, mild mr, mild tr, rvsp 40-50 Imaging - Results Chest X-ray: Report Reviewed Cat Scan: Report Reviewed EKG: Image Reviewed Assessment/Plan IMP: Bilateral pulmonary emboli Chronic HTN Sinus tach VPCs REC: 1. B/l PEs: -remains hemodynamically stable -Echo shows unremarkable RV but rvsp is elevated likely due to PE, improved RVSP on repeat echo -cont ac - manage per heme, pulm - now on eliquis -Elevated TnI and BNP secondary to b/l PEs possible RV strain, not c/w acs -unclear precipitant,workup per heme 2. Chronic HTN: -stable 3. Sinus tach: -secondary to pulmonary emboli, resolved 4. VPCS: single, rare -Echo with nl lvef, benign finding cardiac frazier stable
[2020-02-24 13:02] VITALS: BP 131/71; PULSE 68; TEMP 98.2
== END 2020-02-24 13:10 | disposition home or self-care (01) | DRG 175 ==
LOC: JER 12:40 → JERBED 15:56 → JICU 16:44
PROVIDERS: ADMIT Internal Medicine Pulmonary Disease; ATTEND Nurse Practitioner Acute Care
DX: I26.99 Other pulmonary embolism without acute cor pulmonale (principal); J96.00 Acute respiratory failure, unspecified whether with hypoxia or hypercapnia; Z68.41 Body mass index [BMI] 40.0-44.9, adult; I10 Essential (primary) hypertension; E66.01 Morbid (severe) obesity due to excess calories; E03.9 Hypothyroidism, unspecified; R00.0 Tachycardia, unspecified; I27.20 Pulmonary hypertension, unspecified; E87.6 Hypokalemia; N63.0 Unspecified lump in unspecified breast
CPT/HCPCS: 36415; 71045-TC-FY; 71275-TC; 76604; 80048; 80053; 80061; 82272; 82550; 82728; 83036; 83615; 83721; 83735; 83880; 84100; 84439; 84443; 84484; 85025; 85027; 85260; 85379; 85610; 85730; 86140; 93005; 93010; 93306-TC; 93308; 93970-TC; 99285-25; J1644; Q9967; U0003

== ENCOUNTER 2020-03-24 06:43 | Day surgery (SDC) | payer BC ==
[2020-03-24] MEDS ORDERED: FERRIC CARBOXYMALTOSE 750 MG in SODIUM CHLORIDE 250 ML IVPB ONE (10:00)
[2020-03-24 15:11] VITALS: TEMP 97.9
[2020-03-24 15:14] VITALS: BP 150/71; PULSE 95
== END 2020-03-24 12:30 | disposition home or self-care (01) ==
LOC: JONCNONCHE 06:43
PROVIDERS: ATTEND Internal Medicine Hematology & Oncology
PROC: 3E033GC Introduction of Other Therapeutic Substance into Peripheral Vein, Percutaneous Approach (ICD-10-PCS; principal; 2020-03-24)
DX: D50.9 Iron deficiency anemia, unspecified (principal)
CPT/HCPCS: 96365; J1439

== ENCOUNTER 2020-03-31 10:25 | Day surgery (SDC) | payer BC ==
[2020-03-31] MEDS ORDERED: FERRIC CARBOXYMALTOSE 750 MG in SODIUM CHLORIDE 250 ML IVPB ONE (11:00)
[2020-03-31 16:51] VITALS: TEMP 98.1
[2020-03-31 17:14] VITALS: BP 149/47; PULSE 75
== END 2020-03-31 11:45 | disposition home or self-care (01) ==
LOC: JONCNONCHE 10:25
PROVIDERS: ATTEND Internal Medicine Hematology & Oncology
DX: D50.9 Iron deficiency anemia, unspecified (principal)
CPT/HCPCS: 96365; J1439

== ENCOUNTER 2021-02-06 04:40 | Day surgery (SDC) | payer BC ==
[2021-02-01 18:13] VITALS: BMI 45.6
[2021-02-06] MEDS ORDERED: KETAMINE HCL 500 MG/10 ML VIAL ONE (10:44)
[2021-02-06 12:04] VITALS: BP 118/48; PULSE 77; TEMP 97.6
== END 2021-02-06 12:45 | disposition home or self-care (01) ==
LOC: JASU-ENDO 04:40
PROVIDERS: ATTEND Internal Medicine Gastroenterology
PROC: 0DJD8ZZ Inspection of Lower Intestinal Tract, Via Natural or Artificial Opening Endoscopic (ICD-10-PCS; 2021-02-06)
PROC: 0DJ08ZZ Inspection of Upper Intestinal Tract, Via Natural or Artificial Opening Endoscopic (ICD-10-PCS; principal; 2021-02-06 11:30)
DX: Z12.11 Encounter for screening for malignant neoplasm of colon (principal); D50.9 Iron deficiency anemia, unspecified; K57.30 Diverticulosis of large intestine without perforation or abscess without bleeding; K64.8 Other hemorrhoids
CPT/HCPCS: 43235; G0121

== ENCOUNTER 2022-02-13 06:20 | Day surgery (SDC) | payer BC ==
[2022-02-07 15:01] VITALS: BMI 46.4
[2022-02-13] MEDS ORDERED: ACETAMINOPHEN 325 MG TABLET (FP) PO PRN (10:43)
[2022-02-13] MEDS ORDERED: IBUPROFEN 400 MG TABLET (FP) PO PRN (10:43)
[2022-02-13] MEDS ORDERED: PROPOFOL 20 ML ONE ×2 (10:56→11:22)
[2022-02-13] MEDS ORDERED: MIDAZOLAM HCL 2 MG/2 ML SINGLE DOSE VIAL ONE (10:56)
[2022-02-13] MEDS ORDERED: LIDOCAINE HCL/PF 2% SDV 5ML VIAL ONE (10:57)
[2022-02-13] MEDS ORDERED: ROCURONIUM BROMIDE 50 MG/5 ML SYRINGE ONE (10:59)
[2022-02-13] MEDS ORDERED: oxyCODONE HCL 5 MG TABLET PO PRN (11:29)
[2022-02-13] MEDS ORDERED: ONDANSETRON 4 MG/2 ML VIAL IVPUSH PRN (11:29)
[2022-02-13] MEDS ORDERED: ACETAMINOPHEN 1000 MG/100 ML BAG IVPB PRN (11:29)
[2022-02-13] MEDS ORDERED: LACTATED RINGERS SOLUTION 1,000 ML IV SCH (11:30)
[2022-02-13] MEDS ORDERED: NEOSTIGMINE METHYLSULFATE 0.5 MG/1 ML - 10 ML MDV ONE (11:52)
[2022-02-13] MEDS ORDERED: ONDANSETRON 4 MG/2 ML VIAL ONE (12:28)
[2022-02-13] MEDS ORDERED: HALOPERIDOL LACTATE 5 MG/ML ONE (13:03)
[2022-02-13] MEDS ORDERED: HALOPERIDOL LACTATE 5 MG/ML IV ONE (13:05)
[2022-02-13 14:22] VITALS: RESP 20; TEMP 97.4
[2022-02-13 14:53] VITALS: BP 128/58; PULSE 70
== END 2022-02-13 15:00 | disposition home or self-care (01) ==
LOC: JASU-SURG 06:20
PROVIDERS: ATTEND Obstetrics & Gynecology
PROC: 0UDB7ZX Extraction of Endometrium, Via Natural or Artificial Opening, Diagnostic (ICD-10-PCS; 2022-02-13)
PROC: 0UB98ZX Excision of Uterus, Via Natural or Artificial Opening Endoscopic, Diagnostic (ICD-10-PCS; principal; 2022-02-13 11:00)
DX: N95.0 Postmenopausal bleeding (principal); N84.0 Polyp of corpus uteri
CPT/HCPCS: 88305-TC; 94760